=== PATIENT | female | born 1940 | race Caucasian/White ===

== ENCOUNTER → 2020-03-23 13:39 | Outpatient (BNVA) | payer MEDICARE, OTHER, SELFPAY | PROVIDERS: PCP Internal Medicine; Visit Provider Hospitalist | DX: J45.909 Unspecified asthma, uncomplicated (principal); G47.33 Obstructive sleep apnea (adult) (pediatric); R91.8 Other nonspecific abnormal finding of lung field; Z99.89 Dependence on other enabling machines and devices | CPT/HCPCS: 99214 ==

== ENCOUNTER → 2020-09-14 13:34 | Outpatient (BNVA) | payer MEDICARE, OTHER, SELFPAY | PROVIDERS: PCP Internal Medicine; Visit Provider Hospitalist | DX: R91.8 Other nonspecific abnormal finding of lung field (principal); G47.33 Obstructive sleep apnea (adult) (pediatric); J45.40 Moderate persistent asthma, uncomplicated; Z99.89 Dependence on other enabling machines and devices | CPT/HCPCS: 99212 ==

== ENCOUNTER 2020-12-14 13:07 | Outpatient (REF) | payer MEDICARE, OTHER, SELFPAY ==
--- NOTE | 2020-12-14 17:44 | PFT_ITS ---
INDICATION: Asthma. SPIROMETRY: The FEV1 to FVC of 84% with an FEV1 of 1.7 L, that is 97% predicted, and FVC of 2.03 L, which is 85% predicted. No significant response to bronchodilators noted. Maximum voluntary ventilation 81% predicted. LUNG VOLUMES: Total lung capacity 77% predicted. DIFFUSION CAPACITY: DLCO 66% predicted. Flow volume loop appears to show some restrictive pattern with narrowing of the flows. COMPARISONS: None. INTERPRETATION: No obstructive ventilatory defect. No significant response to bronchodilators noted. Normal maximum voluntary ventilation. However the patient does have a mild restrictive ventilatory defect of unclear etiology. Her last chest x-ray demonstrated no evidence of any parenchymal disease. In addition to that her diffusion capacity is mildly decreased. Clinical correlation warranted. MD BONITA Pacheco/SHAVON / [id number]
== END 2020-12-14 13:08 | disposition home or self-care (01) ==
LOC: HO.RESP 13:07
PROVIDERS: PCP Internal Medicine; Visit Provider Hospitalist
DX: J45.40 Moderate persistent asthma, uncomplicated (principal); J98.4 Other disorders of lung; G47.33 Obstructive sleep apnea (adult) (pediatric); Z79.899 Other long term (current) drug therapy
CPT/HCPCS: 94060; 94727; 94729; 99212

== ENCOUNTER 2021-08-14 11:56 | Outpatient (REF) | payer MEDICARE, OTHER, SELFPAY ==
--- NOTE | ~2021-08-14 | XR_ITS ---
EXAMINATION: XR CHEST CLINICAL INFORMATION: This is an 81-year-old female with other disorders of the lung. COMPARISON: None TECHNIQUE: 2 views of the chest were obtained. FINDINGS: There is bilateral apical pleural thickening and nodularity. There are increased lung markings in the upper lobes with adjacent hyperlucency. Particularly on the left. This could represent bronchiectasis on the left. In addition, there is increased soft tissue density in the right upper lung field of uncertain etiology. A nodular mass cannot be completely excluded. Therefore, CT scan of the chest is recommended for further evaluation. The cardiomediastinal silhouette appears within normal limits. The diaphragm is sharp and there are no effusions. There is osteopenia to the bony structures. Degenerative disc disease changes are noted throughout the thoracic spine. Multiple surgical clips are seen in the anterior abdomen. XR/XR chest 2V IMPRESSION: 1. The upper lung brice appear abnormal bilaterally but worse on the right than the left. A CT scan through the chest is recommended for further evaluation to exclude a mass.
== END 2021-08-14 11:57 | disposition home or self-care (01) ==
LOC: HO.XRAY 11:56
PROVIDERS: PCP Internal Medicine; Visit Provider Hospitalist
DX: G47.33 Obstructive sleep apnea (adult) (pediatric) (principal); J45.40 Moderate persistent asthma, uncomplicated; J98.4 Other disorders of lung; R91.8 Other nonspecific abnormal finding of lung field; Z99.89 Dependence on other enabling machines and devices
CPT/HCPCS: 71046; 99212

== ENCOUNTER → 2021-08-29 09:30 | Outpatient (BNVA) | payer MEDICARE, OTHER, SELFPAY | PROVIDERS: PCP Internal Medicine; Visit Provider Hospitalist | DX: G47.33 Obstructive sleep apnea (adult) (pediatric) (principal); J45.40 Moderate persistent asthma, uncomplicated; J98.4 Other disorders of lung; J47.9 Bronchiectasis, uncomplicated; R91.8 Other nonspecific abnormal finding of lung field; Z99.89 Dependence on other enabling machines and devices | CPT/HCPCS: 99212 ==

== ENCOUNTER → 2021-10-01 13:11 | Outpatient (BNVA) | payer MEDICARE, OTHER, SELFPAY | PROVIDERS: PCP Internal Medicine; Visit Provider Hospitalist | DX: J45.40 Moderate persistent asthma, uncomplicated (principal); J47.9 Bronchiectasis, uncomplicated; J98.4 Other disorders of lung; R91.8 Other nonspecific abnormal finding of lung field; G47.33 Obstructive sleep apnea (adult) (pediatric); Z99.89 Dependence on other enabling machines and devices | CPT/HCPCS: 99212 ==

== ENCOUNTER 2022-01-30 12:44 | Outpatient (REF) | payer MEDICARE, OTHER, SELFPAY ==
--- NOTE | 2022-01-30 14:03 | PFT_ITS ---
Forced vital capacity 93%, FEV1 95%, FEV1 over FVC ratio is 75. FEF 25-75 of 105% and MVV 97%. Post bronchodilator therapy, there is no significant change. Total lung capacity is 86% and residual volume 82%. Diffusion capacity 66%. CONCLUSION: Normal pulmonary function test. No evidence of obstructive or restrictive pulmonary disorder. Diffusion capacity is slightly decreased. This may be due to pulmonary emphysema or nonpulmonary factors. For this, clinical correlation is recommended. Compared to the results of PFT on 12/14/2020, the total lung capacity and residual volume numbers are increased to normal level. Jeanette Manuel MD MSMikey/MODL / [id number]
== END 2022-01-30 12:45 | disposition home or self-care (01) ==
LOC: HO.RESP 12:44
PROVIDERS: PCP Internal Medicine; Visit Provider Hospitalist
DX: J45.40 Moderate persistent asthma, uncomplicated (principal); J47.9 Bronchiectasis, uncomplicated
CPT/HCPCS: 94010; 94727; 94729

== ENCOUNTER → 2022-02-22 08:51 | Outpatient (BNVA) | payer MEDICARE, OTHER, SELFPAY | PROVIDERS: PCP Internal Medicine; Visit Provider Hospitalist | DX: R91.8 Other nonspecific abnormal finding of lung field (principal); J45.40 Moderate persistent asthma, uncomplicated; J98.4 Other disorders of lung; J47.9 Bronchiectasis, uncomplicated; G47.33 Obstructive sleep apnea (adult) (pediatric); Z99.89 Dependence on other enabling machines and devices | CPT/HCPCS: 99212 ==

== ENCOUNTER 2023-03-19 09:12 | Outpatient (AMB) | payer MEDICARE, OTHER, SELFPAY ==
[2023-03-19 09:18] VITALS: BP 128/60; PULSE 63; O2SAT 98; BMI 26.4
--- NOTE | 2023-03-19 09:18 | MHC.OFFVIS ---
Intake Vital Signs 03/19/23 09:18 Height 5 ft 1 in Weight 140 lb BMI 26.4 BP 128/60 Blood Pressure Location Rt brachial Position Sitting Pulse 63 Pulse Source Pulse Oximeter Pulse Oximetry (%) 98 Oxygen Delivery Method Room Air Intake Visit Reasons: COPD [employer] Required: No Allergies sulfamethoxazole [From Bactrim] Allergy (Mild, Verified 03/19/23 09:20) Rash trimethoprim [From Bactrim] Allergy (Mild, Verified 03/19/23 09:20) Rash HPI HPI Comments History of Present Illness Details The patient is an 83-year-old woman with a known history of asthma in addition to obstructive sleep apnea on CPAP. The CPAP therapy has been affective and beneficial. She does use it for more than 4 hours a night. she uses a nasal mask with good effect. She has been concerned because she has been getting bills from her [employer]. Therefore, I did call [employer] in reviewed the bills with them. They explained that she does not have any deals pending at this time. they will let the patient know as well. In the meantime her respiratory status has been stable. She has not had to use her rescue inhaler. Sometimes when she gets sick she likes to have Symbicort To use for period of time. She still has a cough. Usually intermittent [id number]. Usually nonproductive. She also had history of pulmonary nodules. At this time will request a chest x-ray 09/14/2020 the patient is here for pulmonary follow-up visit. Overall she is doing okay. She does complaint of increasing dyspnea on exertion. She states that she gained some weight during the pandemic. She typically goes for walks but lately she has felt more breathless. The for she does continue to use her respiratory therapy with the Symbicort. Although sometimes she forgets to do the 2nd do se. She has not had to use her rescue therapy although she knows she can use it when she gets short of breath due. In the meantime she continues uses CPAP. The CPAP therapy continues to be affecting beneficial. She is still struggling with the [employer] company and bills. I did reach out to the [employer]. It appears that her bills are intact in all taking care of. However, the sales training representative from [employer] will call the patient to clarify any uncertainties. The patient did not have a chest x-ray so therefore I will have her undergo an x-ray now. In the meantime she is concerned about the pulmonary nodules that had been diagnosed in the past. Therefore I will request her CT scan from [facility] to further evaluate her nodules and further management. 12/14/2020 the patient is here for pulmonary follow-up visit. Overall the patient is doing better. Her cough seems to be better. She has not been using the Symbicort at this time. She did undergo pulmonary function studies and we did review them. known obstructive process although she did have a mild restrictive ventilatory defect. Her previous chest x-rays have been okay. we did look at her CT scan that she had at [facility], although, we only got back a CT scan of the abdomen with minimal lung windows demonstrating clear lung bases. The patient continues to use her CPAP. The CPAP therapy continues to be effective in beneficial. She has a comfortable mask and she is getting supplies at this time. At this time will hold off on any additional studies and therapies. She can use her Symbicort as needed. 08/14/2021 the patient is here for a pulmonary follow-up visit. Since we last spoke she did develop a cold and then ultimately developed chest tightness and cough. She went to see her primary care doctor and was prescribed a short-acting beta agonist. She no longer had the Symbicort available. The inhaler has been helpful but she is not sure when to use it hilar use it. Therefore we spent some time in the office teaching her. We did provide her peak flow in her peak flow is 340 mL. She was then taught how to use her rescue inhaler however she could not do a without spacer. Therefore space was also provided. The patient is going to lock her numbers and she is going to return in 4 weeks or so and we can assess her airway resistance and assess to see if she needs to be on maintenance therapy. She is wondering about the diagnosis of asthma. Explained to her that this is a clinical diagnosis based on her symptoms and response to therapy. The patient is okay with that. The meantime she continues use her CPAP. The CPAP therapy continues to be affecting beneficial. She does use it for more than 4 hours. I did reach out to her [employer] in order to get access. 08/29/2021 the patient is here with her daughter and also her son is on the phone due to a policy of just 1 visit per patient. The patient had been having some worsening respiratory symptoms and was requests to have a chest x-ray. The x-ray was abnormal with some slight opacities in the upper lung zones. Therefore she was sent for CT scan of the chest which was personally by me. The the patient does have some apical scarring in nodular densities which are consistent with the findings on the x-ray. The scarring is also associated with some bronchiectatic changes. I was able to look at a CT scan from [facility] from 2016 which demonstrated the apical scarring along with bronchiectasis. But now she appears to also have pulmonary nodules measuring up to 3 mm in size in some areas of atelectasis. She has had CT scans at [facility]. I will request that her recent CT scan gets compared to the most recent CT scan at [facility]. She does have CT scans in multiple places. the patient also appears to have some increasing bronchiectatic changes at the bases. I do believe she that the patient has a chronic airway condition that is resulting in this and not a malignant process. The patient does have some nodularity to the scarring in the upper lung zones but she has had that in some time. The family is very concerned about the possibility of malignancy due to her decreasing energy decrease in appetite and fatigue. The reassuring that I do believe that the findings are more consistent with chronic airway disease and will try to get a sputum to try to assess for chronic smoldering infections and also request blood work to look for inflammatory conditions or immuno compromising conditions likely result in the bronchiectatic changes. She does not have a lot of mucus right now. I will provide her with a flutter valve in order to help clear secretions specially with bronchiectatic changes. In view of the patient's symptoms and the findings on the CT scan I will request a repeat CT scan in 6 months time to make sure that there is no interval worsening of the findings. 10/01/2021 the patient is here for a pulmonary follow-up visit. Overall the patient has been doing well. She continues to go for regular walks without significant respiratory limitations. We did request an Acapella valve. However, the patient does not feel like she needs 1. I did emphasize that walking will allow greater diaphragmatic excursion and that would also help with mucus clearance. We did review her pulmonary function studies that she had back in December 2020 demonstrating a mild restrictive ventilatory defect. Explained to her that this is very mouth finding it. It is likely the result of her apical scarring and atelectasis in the chest area. She was not able to produce any mucus to sent for any analysis in order to address the bronchiectatic changes. Likely that the bronchiectatic changes are primarily due to some traction bronchiectasis in addition to some mucus plugging. We did review her blood work which is reassuring without any evidence of any immunocompromised state that could result in a chronic smoldering infection. The patient does continue to use her CPAP. The CPAP therapy continues to be affecting beneficial. She does use it for more than 4 hours a night. At this point based on the pulmonary nodules the interstitial changes the atelectasis the bronchiectatic changes will plan to repeat the CT scan sometime in the fall and at that point will also have her undergo pulmonary function studies. 02/22/2022 the patient is here for a pulmonary follow-up visit. Overall she is doing well from a respiratory status. The patient does have a rescue inhaler but she has not needed it. She does stay active with all her activities of daily living and yd work and gardening without any limitations. Denies any mucus production. There was a question of bronchiectasis and previous CT scans although borderline. She did have a repeat CT scan to follow-up her nodules on 02/08/2022. We personally reviewed the images. She has not parenchymal scarring of the APCs bilaterally. These have not changed. Her pulmonary nodules have not changed. She does have 1 ground-glass nodular density in the right hemithorax that has not changed when compared to last year. She understands that the ground-glass nodular densities in to be monitor closely. Therefore will do another CT scan in a year's time. If at that point the nodular density has not changed will likely hold off on serial CT scans and just follow up p.r.n.. The patient also underwent pulmonary function studies demonstrating no obstructive nor restrictive ventilatory defects. She does have a mild diffusion impairment. PFTs appear to be improved. 03/19/2023 the patient is here for pulmonary follow-up visit. Overall the patient is doing well. She denies any worsening respiratory symptoms. She did have a recent CT scan of the chest demonstrating her baseline apical scarring with some traction bronchiectasis and nodular densities. The CT scan have not changed so therefore will hold off on additional CT scans at this time. She is also using her CPAP. CPAP therapy continues to be affecting beneficial. She does use a CPAP for more than 4 hours a night. We did talk about different mask. I did provide her with the N30 I small mask that she likes she is going to use. If this mask is helpful and comfortable for her she will call in order for us to send a prescription for the mask to her [employer] company. [facility] Medical History (Updated 03/19/23 @ 20:55 by Russ Manrique MD) Pulmonary scarring Pulmonary nodules Bronchiectasis New abnormality on chest x-ray Chronic restrictive lung disease Pulmonary nodules KORI on CPAP Asthma Family History (Updated 03/23/20 @ 21:30 by Russ Manrique MD) Father No problems noted. Social History (Updated 08/14/21 @ 13:06 by Maria R Luna Gale) Patient Tobacco Use Status: Former Tobacco user Tobacco use type: Cigarette Years Smoked: 10 years Review of Systems Const Reports fatigue, Denies night sweats and Reports weight loss ENT Denies change in voice, Denies lip swelling, Denies mouth pain, Reports nasal congestion, Reports nasal discharge and Denies tongue swelling Card Denies chest pain and Denies dyspnea on exertion Resp Denies chest congestion, Reports cough, Denies dyspnea on exertion and Denies wheezing GI Denies abdominal pain Musc Denies no additional complaints Neuro Denies Neuro-related abnormal movements Psych Denies no additional complaints Endo Reports fatigue Mauricio/Lymph Denies easy bleeding and Denies lymphadenopathy Aller/Immun Denies lip swelling, Denies tongue swelling and Denies wheezing Physical Exam Vital Signs: Last Vital Signs Pulse 63 03/19/23 09:18 BP 128/60 03/19/23 09:18 Pulse Ox 98 03/19/23 09:18 Oxygen Delivery Method Room Air 03/19/23 09:18 BMI result Body Mass Index 26.4 Const General: alert Eyes Pupils: Equal, round and reactive pupils present Neck Neck: Yes normal visual inspection, Yes full ROM and Yes no lymphadenopathy Chest Chest palpation & inspection: normal inspection of the chest Resp Auscultation: no crackles, no rales, no rhonchi, no wheezes and diminished lung sounds Cardio Rate: regular rate Rhythm: regular rhythm Heart sounds: S1 normal heart sound present and S2 normal heart sound present GI Palpation (GI): Soft to palpation and nontender Auscultation: normal bowel sounds Skin General skin exam: rashes and/or lesions noted Neuro Cranial nerves: Yes Equal, round and reactive pupils present Assessment & Plan Assessment & Plan (1) Pulmonary nodules: Comment: multiple solid nodules, 1 4-5mm GG nodule in the right hemithorax, stable Code(s): R91.8 - Other nonspecific abnormal finding of lung field (2) KORI on CPAP: Code(s): G47.33 - Obstructive sleep apnea (adult) (pediatric); Z99.89 - Dependence on other enabling machines and devices (3) Asthma: Code(s): J45.909 - Unspecified asthma, uncomplicated Qualifiers: Asthma complication type: uncomplicated Asthma persistence: persistent Asthma severity: moderate Qualified Code(s): J45.40 - Moderate persistent asthma, uncomplicated (4) Chronic restrictive lung disease: Comment: resolved Code(s): J98.4 - Other disorders of lung (5) Bronchiectasis: Comment: boderline Code(s): J47.9 - Bronchiectasis, uncomplicated Qualifiers: Bronchiectasis type: uncomplicated Qualified Code(s): J47.9 - Bronchiectasis, uncomplicated Plan Continue CPAP therapy. Will trial N30i small Continue short-acting beta agonist as needed with spacer CT chest unchanged, no need for additional scans F/U in 1 year Coding Level of Care Code Est Pt Level 4 (13249) Diagnoses Pulmonary nodules R91.8 KORI on CPAP G47.33; Z99.89 Moderate persistent asthma without complication J45.40 Asthma complication type: uncomplicated Asthma persistence: persistent Asthma severity: moderate Chronic restrictive lung disease J98.4 Bronchiectasis without complication J47.9 Bronchiectasis type: uncomplicated Time Spent (min) 17
== END 2023-03-19 09:46 | disposition home or self-care (01) ==
PROVIDERS: PCP Internal Medicine; Visit Provider Hospitalist
DX: R91.8 Other nonspecific abnormal finding of lung field (principal); G47.33 Obstructive sleep apnea (adult) (pediatric); Z99.89 Dependence on other enabling machines and devices; J45.40 Moderate persistent asthma, uncomplicated; J98.4 Other disorders of lung; J47.9 Bronchiectasis, uncomplicated
CPT/HCPCS: 99214

== ENCOUNTER → 2023-03-19 09:12 | Outpatient (BNVA) | payer MEDICARE, OTHER, SELFPAY | PROVIDERS: PCP Internal Medicine; Visit Provider Hospitalist | DX: J45.40 Moderate persistent asthma, uncomplicated (principal); J47.9 Bronchiectasis, uncomplicated; J98.4 Other disorders of lung; R91.8 Other nonspecific abnormal finding of lung field; G47.33 Obstructive sleep apnea (adult) (pediatric); Z99.89 Dependence on other enabling machines and devices | CPT/HCPCS: 99212 ==

== ENCOUNTER 2024-05-13 14:08 | Outpatient (AMB) | payer MEDICARE, OTHER, SELFPAY ==
[2024-05-13 14:13] VITALS: BP 118/62; PULSE 70; O2SAT 97; BMI 26.4
--- NOTE | 2024-05-13 14:13 | A.OFFVIS_ITS ---
Vital Signs 05/13/24 14:13 Height 5 ft 3 in Weight 148 lb 12.992 oz BMI 26.4 BP 118/62 Blood Pressure Location Rt brachial Position Sitting Pulse 70 Pulse Source Pulse Oximeter Pulse Oximetry (%) 97 Oxygen Delivery Method Room Air Intake Visit Reasons: COPD Allergies sulfamethoxazole [From Bactrim] Allergy (Mild, Verified 05/13/24 14:16) Rash trimethoprim [From Bactrim] Allergy (Mild, Verified 05/13/24 14:16) Rash HPI Comments Details: The patient is an 84-year-old woman with a known history of asthma in addition to obstructive sleep apnea on CPAP. The CPAP therapy has been affective and beneficial. She does use it for more than 4 hours a night. she uses a nasal mask with good effect. She has been concerned because she has been getting bills from her [employer]. Therefore, I did call [employer] in reviewed the bills with them. They explained that she does not have any deals pending at this time. they will let the patient know as well. In the meantime her respiratory status has been stable. She has not had to use her rescue inhaler. Sometimes when she gets sick she likes to have Symbicort To use for period of time. She still has a cough. Usually intermittent [id number]. Usually nonproductive. She also had history of pulmonary nodules. At this time will request a chest x-ray 09/14/2020 the patient is here for pulmonary follow-up visit. Overall she is doing okay. She does complaint of increasing dyspnea on exertion. She states that she gained some weight during the pandemic. She typically goes for walks but lately she has felt more breathless. The for she does continue to use her respiratory therapy with the Symbicort. Although sometimes she forgets to do the 2nd do se. She has not had to use her rescue therapy although she knows she can use it when she gets short of breath due. In the meantime she continues uses CPAP. The CPAP therapy continues to be affecting beneficial. She is still struggling with the [employer] company and bills. I did reach out to the [employer]. It appears that her bills are intact in all taking care of. However, the cash applications representative from [employer] will call the patient to clarify any uncertainties. The patient did not have a chest x-ray so therefore I will have her undergo an x-ray now. In the meantime she is concerned about the pulmonary nodules that had been diagnosed in the past. Therefore I will request her CT scan from [facility] to further evaluate her nodules and further management. 12/14/2020 the patient is here for pulmonary follow-up visit. Overall the patient is doing better. Her cough seems to be better. She has not been using the Symbicort at this time. She did undergo pulmonary function studies and we did review them. known obstructive process although she did have a mild restrictive ventilatory defect. Her previous chest x-rays have been okay. we did look at her CT scan that she had at [facility], although, we only got back a CT scan of the abdomen with minimal lung windows demonstrating clear lung bases. The patient continues to use her CPAP. The CPAP therapy continues to be effective in beneficial. She has a comfortable mask and she is getting supplies at this time. At this time will hold off on any additional studies and therapies. She can use her Symbicort as needed. 08/14/2021 the patient is here for a pulmonary follow-up visit. Since we last spoke she did develop a cold and then ultimately developed chest tightness and cough. She went to see her primary care doctor and was prescribed a short- acting beta agonist. She no longer had the Symbicort available. The inhaler has been helpful but she is not sure when to use it hilar use it. Therefore we spent some time in the office teaching her. We did provide her peak flow in her peak flow is 340 mL. She was then taught how to use her rescue inhaler however she could not do a without spacer. Therefore space [facility] also [facility] and she is going to return in 4 weeks or so and we can assess her airway resistance and assess to see if she needs to be on maintenance therapy. She is wondering about the diagnosis of asthma. Explained to her that this is a clinical diagnosis based on her symptoms and response to therapy. The patient is okay with that. The meantime she continues use her CPA P. The CPAP therapy continues to be affecting beneficial. She does use it for more than 4 hours. I did reach out to her [employer] company, [employer] in order to get access. 08/29/2021 the patient is here with her daughter and also her son is on the phone due to a policy of just 1 visit per patient. The patient had been having some worsening respiratory symptoms and was requests to have a chest x-ray. The x- ray was abnormal with some slight opacities in the upper lung zones. Therefore she was sent for CT scan of the chest which was personally by me. The the patient does have some apical scarring in nodular densities which are consistent with the findings on the x-ray. The scarring is also associated with some bronchiectatic changes. I was able to look at a CT scan from [facility] from 2016 which demonstrated the apical scarring along with bronchiectasis. But now she appears to also have pulmonary nodules measuring up to 3 mm in size in some areas of atelectasis. She has had CT scans at [facility]. I will request that her recent CT scan gets compared to the most recent CT scan at [facility]. She does have CT scans in multiple places. the patient also appears to have some increasing bronchiectatic changes at the bases. I do believe she that the patient has a chronic airway condition that is resulting in this and not a malignant process. The patient does have some nodularity to the scarring in the upper lung zones but she has had that in some time. The family is very concerned about the possibility of malignancy due to her decreasing energy decrease in appetite and fatigue. The reassuring that I do believe that the findings are more consistent with chronic airway disease and will try to get a sputum to try to assess for chronic smoldering infections and also request blood work to look for inflammatory conditions or immuno compromising conditions likely result in the bronchiectatic changes. She does not have a lot of mucus right now. I will provide her with a flutter valve in order to help clear secretions specially with bronchiectatic changes. In view of the patient's symptoms and the findings on the CT scan I will request a repeat CT scan in 6 months time to make sure that there is no interval worsening of the findings. 10/01/2021 the patient is here for a pulmonary follow-up visit. Overall the patient has been doing well. She continues to go for regular walks without significant respiratory limitations. We did request an Acapella valve. However, the patient does not feel like she needs 1. I did emphasize that walking will allow greater diaphragmatic excursion and that would also help with mucus clearance. We did review her pulmonary function studies that she had back in December 2020 demonstrating a mild restrictive ventilatory defect. Explained to her that this is very mouth finding it. It is likely the result of her apical scarring and atelectasis in the chest area. She was not able to produce any mucus to sent for any analysis in order to address the bronchiectatic changes. Likely that the bronchiectatic changes are primarily due to some traction bronchiectasis in addition to some mucus plugging. We did review her blood work which is reassuring without any evidence of any immunocompromised state that could result in a chronic smoldering infection. The patient does continue to use her CPAP. The CPAP therapy continues to be affecting beneficial. She does use it for more than 4 hours a night. At this point based on the pulmonary nodules the interstitial changes the atelectasis the bronchiectatic changes will plan to repeat the CT scan sometime in the fall and at that point will also have her undergo pulmonary function studies. 02/22/2022 the patient is here for a pulmonary follow-up visit. Overall she is doing well from a respiratory status. The patient does have a rescue inhaler but she has not needed it. She does stay active with all her activities of daily living and yd work and gardening without any limitations. Denies any mucus production. There was a question of bronchiectasis and previous CT scans although borderline. She did have a repeat CT scan to follow-up her nodules on 02/08/2022. We personally reviewed the images. She has not parenchymal scarring of the APCs bilaterally. These have not changed. Her pulmonary nodules have not changed. She does have 1 ground-glass nodular density in the right hemithorax that has not changed when compared to last year. She understands that the ground-glass nodular densities in to be monitor closely. Therefore will do another CT scan in a year's time. If at that point the nodular density has not changed will likely hold off on serial CT scans and just follow up p.r.n.. The patient also underwent pulmonary function studies demonstrating no obstructive nor restrictive ventilatory defects. She does have a mild diffusion impairment. PFTs appear to be improved. 03/19/2023 the patient is here for pulmonary follow-up visit. Overall the patient is doing well. She denies any worsening respiratory symptoms. She did have a recent CT scan of the chest demonstrating her baseline apical scarring with some traction bronchiectasis and nodular densities. The CT scan have not changed so therefore will hold off on additional CT scans at this time. She is also using her CPAP. CPAP therapy continues to be affecting beneficial. She does use a CPAP for more than 4 hours a night. We did talk about different mask. I did provide her with the N30 I small mask that she likes she is going to use. If this mask is helpful and comfortable for her she will call in order for us to send a prescription for the mask to her [employer] company. 05/13/2024 the patient is here for a pulmonary follow-up visit. The patient katiana agarwal has been doing okay on until recently. For the last several days she has been complaining of a croupy cough. Also some chest and throat irritation. Prior to that she has been doing okay. She does use her CPAP every night. CPAP therapy has been affecting beneficial. She does use for more than 4 hours a night. Her average pressure is around 11. She currently has a nasal mask. She will benefit from a fullface mask but she is not sure at this time if she could tolerate it. In addition to that the patient does have a rescue inhaler albuterol which she uses as needed. She does not need a refill at this time. The patient is scheduled to undergo a total hip replacement on the left. Therefore, will go ahead and give her a course of azithromycin just for 5 days just to kind of clear any respiratory process that may be starting. But, from pulmonary standpoint patient may be able to proceed with surgery after the antibiotics and as long she is doing okay from respiratory status. [facility] Medical History (Updated 05/13/24 @ 21:22 by Russ Manrique MD) Pulmonary scarring Pulmonary nodules Bronchiectasis New abnormality on chest x-ray Chronic restrictive lung disease Pulmonary nodules KORI on CPAP Asthma Family History (Updated 03/23/20 @ 21:30 by Russ Manrique MD) Father No problems noted. Social History Patient Tobacco Use Status: Former Tobacco user Tobacco use type: Cigarette Years Smoked: 10 years Review of Systems Const Reports fatigue, Denies night sweats and Reports weight loss ENT Denies change in voice, Denies lip swelling, Denies mouth pain, Reports nasal congestion, Reports nasal discharge and Denies tongue swelling Card Denies chest pain and Denies dyspnea on exertion Resp Denies chest congestion, Reports cough, Denies dyspnea on exertion and Denies wheezing GI Denies abdominal pain Musc Reports as per HPI, Reports arthralgias and Reports limited range of motion Neuro Denies Neuro-related abnormal movements Psych Denies no additional complaints Endo Reports fatigue Mauricio/Lymph Denies easy bleeding and Denies lymphadenopathy Aller/Immun Denies lip swelling, Denies tongue swelling and Denies wheezing Physical Exam Vital Signs: Last Vital Signs Pulse 70 05/13/24 14:13 BP 118/62 05/13/24 14:13 Pulse Ox 97 05/13/24 14:13 Oxygen Delivery Method Room Air 05/13/24 14:13 BMI result Body Mass Index 26.4 Const General: alert Eyes Pupils: Equal, round and reactive pupils present Neck Neck: Yes normal visual inspection, Yes full ROM and Yes no lymphadenopathy Chest Chest palpation & inspection: normal inspection of the chest Resp Effort & Inspection: Actively coughing Quality: other (croup, mild) Auscultation: no crackles, no rales, no rhonchi, no wheezes and diminished lung sounds Cardio Rate: regular rate Rhythm: regular rhythm Heart sounds: S1 normal heart sound present and S2 normal heart sound present GI Palpation (GI): Soft to palpation and nontender Auscultation: normal bowel sounds Skin General skin exam: no rashes or lesions noted Neuro Cranial nerves: Yes Equal, round and reactive pupils present Extrem General: Yes no clubbing, cyanosis or edema Assessment & Plan Assessment & Plan (1) Pulmonary nodules: Comment: multiple solid nodules, 1 4-5mm GG nodule in the right hemithorax, stable Code(s): R91.8 - Other nonspecific abnormal finding of lung field Category: Medical (2) KORI on CPAP: Code(s): G47.33 - Obstructive sleep apnea (adult) (pediatric); Z99.89 - Dependence on other enabling machines and devices Category: Medical (3) Asthma: Code(s): J45.909 - Unspecified asthma, uncomplicated Category: Medical Qualifiers: Asthma complication type: uncomplicated Asthma persistence: persistent Asthma severity: moderate Qualified Code(s): J45.40 - Moderate persistent asthma, uncomplicated (4) Chronic restrictive lung disease: Comment: resolved Code(s): J98.4 - Other disorders of lung Category: Medical (5) [facility]: [facility] Code(s): J47.9 - Bronchiectasis, uncomplicated Category: Medical Qualifiers: Bronchiectasis type: uncomplicated Qualified Code(s): J47.9 - Bronchiectasis, uncomplicated (6) Cough: Code(s): R05.9 - Cough, unspecified Category: Medical Qualifiers: Cough type: acute Qualified Code(s): R05.1 - Acute cough Plan start Zpack Continue CPAP therapy. Will trial N30i small, needs supplies. Consider replacement APAP next yr (2018) Continue short-acting beta agonist as needed with spacer CT chest unchanged, no need for additional scans ok to proceed with orthopedic surgery after completing the abx F/U in 1 year Medications: New azithromycin 500 mg PO DAILY 5 tabs 0RF 5 days Coding Level of Care Code Est Pt Level 4 (12596) Diagnoses Pulmonary nodules R91.8 KORI on CPAP G47.33; Z99.89 Moderate persistent asthma without complication J45.40 Asthma complication type: uncomplicated Asthma persistence: persistent Asthma severity: moderate Chronic restrictive lung disease J98.4 Bronchiectasis without complication J47.9 Bronchiectasis type: uncomplicated Acute cough R05.1 Cough type: acute
--- OUTSIDE RECORDS SUMMARY | 2024-05-19 03:03 | XMS_ITS | Patient Health Record ---
[facility] Address [address] [place] [id number] Care Team Providers Care [employer] Name Role Phone Frances Zapata MD Primary Care Provider Unavail able Kaya Clifford Unavailable [phone] Allergies Allergen (clinical drug ingredient) Drug/Non Drug Allergy documented on EMR Reaction Allergy Type Onset Date Status epinephrine Epinephrine Unknown Drug Allergy Act justin Substance with sulfonamide structure and antibacterial mechanism of action (substance) Sulfa Antibiotics Unknown Drug Allergy Active Reason For Referral No Information Medications Medication SIG (Take, Route, Frequency, Duration) Notes Start Date End Date Status Calcium Not-Taking Turmeric Active D-Mannose Active amLODIPine Besylate 5 MG 1 tablet Orally Once a day Active Omeprazole Active Sertraline HCl 25 MG 1 tablet Orally Onc e a day Not-Taking Immunizations Vaccine Route Administration Date Status Comme nts COVID-19 Pfizer BioNTech Vaccine Unknown 02/27/2022 Administered 3rd 09/14/2021 2nd 03/13/2021 1st Social History Tobacco Use: Social History Observation Description Date Details (start date - stop date) Former Smoker NA - NA Tobacco Use/Smoking Question Answer Notes Are you a: former smoker Additional Findings: Tobacco Non-User Current no n-smoker Alcohol Screen Question Answer Notes Did you have a drink containing alcohol in the p ast year? No Points 0 Interpretation Negative Tobacco use other than smoking: Question Answer Notes Are you an other tobacco user? No Problems Problem Type SNOMED Code ICD Code Onset Dates Problem Status W/U Status Risk Notes Problem Acquired hallux valgus (94819773) Hallux valgus (acquired), left foot (M20.12) Active confirmed Problem Localized, primary osteoarthritis of the ankle and/or foot (817329944) Primary osteoarthriti s, left ankle and foot (M19.072) Active confirmed Problem Acquired hallux valgus (73701847) Hallux valgus (acquired), right foot (M20.11) Active confirmed Problem Non-pressure chronic ulcer of other part of left foot limited to breakdown of skin (L97.521) Active confirmed Problem Acquired hammer toe of right foot (9293503741055106) Other hammer toe(s) (acquired), right foot (M20.41) Active confirmed Problem Acquired hammer toe of right foot (0270996934798467) Other hammer toe(s) (acquired), right foot (M20.41) Active confirmed Problem Acquired hammer toe of left foot (1282320387162258) Other hammer toe(s) (acquired), left foot (M20.42) Active confirmed Problem 92424363 Unsteady gait (R26.81) Active confirmed Problem 253784486 Hallux rigidus of left foot (M20.22) Active confirmed Problem Localized, primary osteoarthritis of the ankle and/or foot (606267274) Arthritis of joint of lesser toe, right (M19.071) Active confirmed Vital Signs Height 5 ft 3 in in 11/28/2023 Weight 142 lbs 11/28/2023 BMI 25.15 kg/m2 11/28/2023 Encounters Encounter Location Date Provider Diagnosis [address] [address] 08/29/2023 Kaya Black Dystrophic nail L60.3 ; Other hammer toe(s) (acquired), right foot M20.41 ; Pain in left toe(s) M79.675 and Pain in right toe(s) M79.[address] [address] 11/28/2023 Kaya Black Dystrophic nail L60.3 ; Other hammer toe(s) (acquired), right foot M20.41 ; Pain in left toe(s) M79.675 and Pain in right toe(s) M79.674 [facility] [address] [place] [address] 05/18/2024 Kaya Black Assessments Encounter Date Diagnosis (ICD Code) Assessment Notes Treatment Notes Treatment Clinical Notes Section Notes 08/29/2023 Other hammer toe(s) (acquired), right foot (ICD-10 - M20.41) 08/29/2023 Dystrophic nail (ICD-10 - L60.3) 11/28/2023 Dystrophic nail (ICD-10 - L60.3) 08/29/2023 Pain in left toe(s) (ICD-10 - M79.675) 11/28/2023 Other hammer toe(s) (acquired), right foot (ICD-10 - M20.41) 11/28/2023 Pain in left toe(s) (ICD-10 - M79.675) 08/29/2023 Pain in right toe(s) (ICD-10 - M79.674) 11/28/2023 Pain in right toe(s) (ICD-10 - M79.674) Plan Of Treatment No Information Insurance Providers Payer Name Payer Address Payer Phone Subscriber Number Group Number Insured Name Patient Relationship to Insured Coverage Start Date Coverage End Date Medicare National [employer] [address] [place] [address] [id number] Precious Ashby Self - patient is the insured [facility] [address] [place] [address] [id number] Precious Ashby Self - patient is the insured Medical (General) History Medical History History ICD Code Arthritis asthma High blood pressure Measles Mumps Chicken pox Surgical History Surgery Date(Month/Year) hysterectomy bone removal left hand bowel resection appendectomy
--- OUTSIDE RECORDS SUMMARY | 2024-05-19 03:03 | XMS_ITS ---
Author Organization [facility] Address [address] [place] [phone] Care Team Providers Care Electronic Test Technician Name Role Phone Jodi LU, Frances Primary Care Provider Unavail able Black, Kaya Unavailable [phone] REASON FOR VISIT cx 05/21/24 Encounters Encounter Location Date Provider Diagnosis [facility] [address] [place] [address] 05/18/2024 Kaya Black Plan Of Treatment No Information Progress Notes * Gerri CHINOHenriettaOB:1939 (84 yo F)Acc No.[id number]:05/18/2024 Patient:?Precious CHINO :1940???Age:84 Y???Sex:Female Address:[address] [place] [id number] * true * Date:? Generated for Eliasi ariel/Priscila/eTransmitting on:?05/19/2024 03:02 AM EST
--- OUTSIDE RECORDS SUMMARY | 2024-05-19 03:03 | XMS_ITS ---
Author Organization [facility] Jagruti velazquez Hamer Address [address] [place] [address] Care Team Providers Care Media Intern Name Role Phone Jodi LU, Frances Primary Care Provider Unavail able Black, Kaya Unavailable [phone] Allergies Allergen (clinical drug ingredient) Drug/Non Drug Allergy documented on EMR Reaction Allergy Type Onset Date Status epinephrine Epinephrine Unknown Drug Allergy Act justin Substance with sulfonamide structure and antibacterial mechanism of action (substance) Sulfa Antibiotics Unknown Drug Allergy Active REASON FOR VISIT Painful Nail(s), pt states last pcp visit was 08/2023, Toe Pain Medications Medication SIG (Take, Route, Frequency, Duration) Notes Start Date End Date Status Calcium Not-Taking Turmeric Active D-Mannose Active Omeprazole Active Sertraline HCl 25 MG 1 tablet Orally Onc e a day Not-Taking amLODIPine Besylate 5 MG 1 tablet Orally Once a day Active Social History Tobacco Use: Social History Observation [...] Are you an other tobacco user? No Vital Signs Height 5 ft 3 in in 11/28/2023 Weight 142 lbs 11/28/2023 BMI 25.15 kg/m2 11/28/2023 Encounters Encounter Location Date [facility] [address] 11/28/2023 Kaya Black Dystrophic nail L60. 3 ; Other hammer toe(s) (acquired), right foot M20.41 ; Pain in left toe(s) M79.675 and Pain in right toe(s) M79.674 Assessments Encounter Date Diagnosis (ICD Code) Assessment Notes Treatment Notes Treatment Clinical Notes Section Notes 11/28/2023 Dystrophic nail (ICD-10 - L60.3) 11/28/2023 Other hammer toe(s) (acquired), right foot (ICD-10 - M20.41) 11/28/2023 Pain in left toe(s) (ICD-10 - M79.675) 11/28/2023 Pain in right toe(s) (ICD-10 - M79.674) Plan Of Treatment Next Appt Details Follow Up: prn, Reason: Progress Notes * ELINGerri VillafanaHenriettaOB:1939 (83 yo F)Acc No.[id number]:11/28/2023 Progress Note Patient:?MerissatatianaPrecious villafana Provider:?Kaya Clifford DPM :1940???Age:83 Y???Sex:Female D ate:11/28/2023 Address:[address] [place], [place] [id number] Pcp:Frances Zapata MD Subjective: * Chief Complaints: * ???Painful Nail(s)Pt states last pcp visit was 08/2023Toe Pain * HPI: ???Painful Nails:?Treatments:?Topical Antifungal.?Toe pain:?Nature:?tenderness.?Location:?Right foot , 5th toe.?Duration:?several weeks.?Course:?worse.?Aggrevated by:?any pressure, shoes.?Treatments:?rest/alter normal daily activity, change in shoes.? * ROS:?General/Constitutional:?Nausea?denies.?Vomiting?denies.?Hunger Thirst?denies.?Loss appetite?denies, denies.?Chills?denies, denies.?Fatigue?denies.?Fever?denies, denies.?Night Sweats?denies.?Unexplained weight loss?denies.?Unexplained weight gain?denies.?Ophthalmologic:?Blurred vision?denies.?Red eye?denies.?HEENTM:?Dentures?denies.?Dizziness?denies.?Glasses/contacts?denies.?Retinopathy?de nies.?Blurred/double vision?denies.?TMJ?denies.?Discharge/drainage?denies.?Implants?denies.?Sore throat?denies.?Dental implants?denies.?Hard of hearing ?denies.?Difficulty chewing/swallowing/speaking?denies.?Nose bleeds?denies.?Sore mouth?denies, denies.?Swollen glands?denies.?Respiratory:?On Oxygen?denies.?Pneumonia/pleurisy?denies.?Bronchitis?denies.?Emphysema?denies.?C oughing?denies, denies.?Cough blood?denies.?Shortness of breath?denies, denies.?Wheezing?denies, denies.?Cardiovascular:?Pacemaker?denies.?MVP?denies.?WPW?denies.?CHF?denies.?Heart attack?denies.?Septal defect?denies.?Rapid beat?denies.?Chest pain ?denies, denies.?Atrial Fib.?denies, denies.?Murmur/Palpitations?denies.?Gastrointestinal:?Hemorrhoids?denies.?Stomach/Abdominal pain?denies, denies.?Dark blood stool?denies.?Irritable bowel ?denies.?Constipation?denies.?Diarrhea?denies, denies.?Vomiting?denies.?Hematology:?Swelling?denies.?Clots?denies.?Varicose Veins?denies.?Bruising?denies.?Bleeding problem?denies.?Genitourinary:?Blood urine?denies, denies.?Frequent/Painfu/urination/bladder control?denies, denies.?Kidney stones?denies.?Infection (UTI)?denies.?Nephropathy?denies.?sex trans dis (STD)?denies.?Prostate?denies.?Musculoskeletal:?Hammertoes?denies.?Bunions?denies.?Back Pain?denies.?Muscle Cramps/ Resting?denies.?Muscle cramps / walking?denies.?Generalized aches and pains?denies.?Painful joints?denies.?Swollen joints?denies.?Weakness?denies.?Podiatric:?Comments?See HPI for comments.?Integ.:?Chiu?denies.?Scars?denies.?Corns/calluses?denies.?Ingrown nails?denies.?Painful nails?denies.?Open Sores?denies.?Itching?denies.?Rashes?denies, denies.?Neurologic:?Difficulty sleeping?denies.?Brain disorder?denies.?Numbness?admits.?Balance trouble?admits.?Confusion?denies, denies.?Fainting/blackouts?denies.?Headache?denies.?Tingling?denies.?Tremors?den ies.? * Medical History:? * Surgical History:?hysterecto my bone removal left hand bowel resection appendectomy * Hospitalization/Major Diagno stic Procedure:?No Hospitalization History. * Family History:?Mother: dece ased.?Father: .? * Social History:?Tobacco Use:?Tobacco Use/Smoking?Are you a:?former smoker ?Additional Findings: Tobacco Non-User?Current non-smoker ?Tobacco use other than smoking?Are you an other tobacco user??No ???Drugs/Alcohol:?Drugs?Have you used drugs other than those for medical reasons in the past 12 months??No ?Alcohol Screen?Did you have a drink containing alcohol in the past year??No ?Points?0 ?Interpretation?Negative ???Miscellaneous:?Caffeine: yes, frequency:, 1-2 cups per day. ?Children: yes. ?Exercise: yes, walking, exercise/. ?Marital status: . ?Occupation: Retired. * Medications:?TakingD-Mannose Turmeric amLODIPine Besylate 5 MG Tablet 1 tablet Orally Once a dayOmeprazole Taking D-Mannose Taking Turmeric Taking amLODIPine Besylate 5 MG Tablet 1 tablet Orally Once a dayTaking Omeprazole Not-Taking/PRNCalcium Sertraline HCl 25 MG Tablet 1 tablet Orally Once a dayMedication List reviewed and reconciled with the patientNot-Taking/PRN Calcium Not-Taking/PRN Sertraline HCl 25 MG Tablet 1 tablet Orally Once a dayMedication List reviewed and reconciled with the patient * Allergies:?Sulfa Antibiotics Epinephrineyes[Allergies Verified] Objective: * Vitals:?Ht: 5 ft 3 in, Wt: 1 42, BMI:25.15, Shoe size: 8. * Examination: ???General Examination: ?GENERAL APPEARANCE:?alert, well hydrated, in no distress , good attention to hygiene.?ORIENTED:?person,place, and time.?Neurological: ?SENSORY:?Neurological exam reveals intact sensorium, pain sensation normal, vibration sensation intact, pinprick sensation is normal in the lower extremities, Pt denies, anesthesia, burning, paresthesia, tingling, B/L.?TINEL'S COMPRESSION:?negative tarsal tunnel, greg pedis, and medial calcaneal nerves b/l.?DEEP TENDON REFLEXES:?Achilles, /, B/L.?BABINSKI REFLEX:?absent.?Vascular: ?DP PULSES:? 06/12, B/L.?PT PULSES:? 06/12, B/L.?CAPILLARY FILL TIME:?3 secs. per digit, b/l.?SKIN TEMPERTURE GRADIENT OF THE LOWER EXTERMITIES:?warm to cool, proximal to distal.?HAIR GROWTH/TEXTURE/ELASTICITY/TURGOR:?absent.?EDEMA:?no edema.?Dermatologic: ?SKIN FINDINGS:?Skin exam reveals normal texture, elasticity, and tugor. There are no masses, no excrescences. The interspaces are clear..?Orthopedic: ?MUSCLE STRENGTH:?5/5 all groups in a symmetrical fashion , B/L.?GAIT ABNORMALITY:?pronated, abducted, b/l unstable.?FOOT MORPHOLOGY:? normal B/L.?BUNION:?Medially prominent 1st MPJ , RIGHT.?DIGITAL DEFORMITIES:?Digital contracture, PIPJ, 2-5 B/L, incompl-reducable with WB, or to push-up test, no over, nor underlapping , , Reveals cont. pain/swelling/redness/enlargement of PIPJ , T9.?FOOTWEAR:?shoe gear properties exacerbate patients foot/toe deformity- ?.?Nails: ?NAILS are:? Elongated, overgrown, dystrophic TA.? Assessment: * Assessment: 1.?Dystrophic nail - L60.3?2 .?Other hammer toe(s) (acquired), right foot - M20.41 (Primary)?3.?Pain in left toe(s) - M79.675?4.?Pain in right toe(s) - M79.674? Plan: * Treatment: * Procedure Codes:? * Preventive Medicine:? ??Counseling:?Discussion:?-13: Office or other outpatient visit for the evaluation and management of an established patient, which required a medically appropriate history and/or examination and LOW level of DECISION MAKING for: 1 STABLE ACUTE UNCOMPLICATED PROBLEM, 2 OR MORE MINOR PROBLEMS, OR 1 STABLE CHRONIC PROBLEM, THAT POSE(S) A LOW RISK FOR MORBIDITY/MORTALITY. The visit on the day of the encounter encompassed interpreting the data and educating the patient as to the nature of their condition, treatment options available according to their individual PMH, meds, allergies, and overall health/living conditions, as well as any potential risks or complications that may occur from a failure to adhere to, and participate in, the recommended course of therapy. The discussion included a complete verbal, and/or written explanation of the examination results, any x-rays taken, the proposed diagnosis, and outline of the treatment plan. A schedule for future care needs was also explained. The patient verbalized an understanding of the instructions at this time and agreed to be an active participant in their treatment. If the patient should think of any questions or concerns after the visit, I have encouraged the patient to call the office.?Shoe Gear Counseling:?The patient and I rAGAIN eviewed the types of shoes they should be wearing. My recommendation included obtaining a well-fitted shoe with a good supportive, non-foldable nor twistable sole, plenty of toe/room for the forefoot, and proper arch support. Based on todays examination, I recommended the patient look for new shoes, by having their feet professionally measured. We discussed that generally the best time of the day for a shoe fitting is the afternoon. Different shoes types and brands to best match the patients occupation and vocation were discussed. Specific brand selection will be up to the patient, their individual foot condition/deformities, and fit. The patient and I reviewed the standard new shoe break in period by wearing them for a few hours a day while checking for redness or sores as wear time is increased. The patient verbally confirmed to understanding the information discussed.,Pt is fitted today with gel toe sleeve.? * Follow Up:?prn * Images: * Sign off status: Completed true * Provider:?Kaya Clifford DPM Date:?2023 Generated for Nora george/Priscila/Gamaitting on:?05/19/2024 03:02 AM EST History and Physical Notes * HPI (History of Present Illness) Category Sub-Category Detail Notes Category Not es Toe pain Nature: tenderness Location: Right foot , 5th toe Duration: several weeks Course: worse Aggravated by: any pressure, shoes Treatments: rest/alter normal da jeanne activity, change in shoes Painful Nails Treatments: Topical Antifungal Examination Category Sub-Category Detail Notes Category Not es Neurological SENSORY: Neurological exa m reveals intact sensorium, pain sensation normal, vibration sensation intact, pinprick sensation is normal in the lower extremities, Pt denies, anesthesia, burning, paresthesia, tingling, B/L BABINSKI REFLEX: absent TINEL'S COMPRESSION: negative tarsal castillo juanita, greg pedis, and medial calcaneal nerves b/l DEEP TENDON REFLEXES: Achilles, 2/4, B/L Dermatologic SKIN FINDINGS: Skin exam reveal s normal texture, elasticity, and tugor. There are no masses, no excrescences. The interspaces are clear. Orthopedic GAIT ABNORMALITY: pronated, abducted, b/l unstable FOOT MORPHOLOGY: normal B/L BUNION: Medially prominent 1 st MPJ , RIGHT FOOTWEAR: shoe gear properties exacerbate patients foot/toe deformity- DIGITAL DEFORMITIES: Digital contracture , PIPJ, 2-5 B/L, incompl-reducable with WB, or to push-up test, no over, nor underlapping , , Reveals cont. pain/swelling/redness/enlargement of PIPJ , T9 MUSCLE STRENGTH: 5/5 all groups in a symmetrical fashion , B/L General Examination GENERAL APPEARANCE: alert, w ell hydrated, in no distress , good attention to hygiene ORIENTED: person,place, and ti me Vascular DP PULSES(B): 1/4, B/L PT PULSES(B): 1/4, B/L CAPILLARY FILL TIME: 3 secs. per digit, b/l TEMPERTURE GRADIENT(C): warm to cool, pr oximal to distal TROPHIC CONDITION-TEXTURE/EL ASTICITY/TURGOR/HAIR GROWTH(B): absent EDEMA(C): no edema Nails NAILS are: Elongated, overgrown, dystro phic TA
--- OUTSIDE RECORDS SUMMARY | 2024-05-19 03:03 | XMS_ITS ---
Author Name [facility] Organization Unknown Results Test Name/Text Value Interpretation Date Range Source TPE INTERPRETATION NEW Normal [facility] IMMUNOFIXATION Quantitatively IgG, IgA, and IgM are within the appropriate reference intervals. No abnormalities are noted on this immunofixation electrophoresis. Normal [facility] SIGNED OUT BY: Sarah Moe, PhD Normal [facility] ALPHA 2 % 10.3% Normal 8.6 - 13.1 [facility] % BETA 10.1% Normal 8.9 - 14.9 [facility] ALPHA 1 % 2% Normal 1.3 - 3.5 [facility] ALPHA 2 0.7g/dL Normal 0.6 - 0.9 [facility] GAMMA % 11.2% Normal 7.3 - 17 [facility] IMMUNOGLOBULIN M 152mg/dL Normal 22 - 293 [facility] IMMUNOGLOBULIN G 1091mg/dL Normal 624 - 1766 [facility] IMMUNOGLOBULIN A 216mg/dL Normal 82 - 460 [facility] ALBUMIN INDEX 4.5g/dL Normal 3.8 - 5.3 [facility] PROTEIN TOTAL 6.8g/dL Normal 6.2 - 8.1 [facility] BETA 0.7g/dL Normal [id number] 0.6 - 1.1 [facility] ALBUMIN % 66.4% Normal 57.1 - 71.3 [facility] ALPHA 1 0.1g/dL Normal [id number] 0.1 - 0.2 [facility] GAMMA 0.8g/dL Normal [id number] 0.5 - 1.2 [facility] FOLATE 12.7ng/mL Normal 7 - 31.4 [facility] VITAMIN B12 150pg/mL Normal [facility] THYROID STIM HORMONE 3.11uIU/mL Normal 0.35 - 4.94 [facility] PROTEIN TOTAL 6.8g/dL Normal 6.2 - 8.1 [facility] SEDIMENTATION RATE, ERYTHROCYTE 37mm Above high normal 0 - 20 [facility] IMMUNOGLOBULIN M 152mg/dL Normal 22 - 293 [facility] IMMUNOGLOBULIN A 216mg/dL Normal 82 - 460 [facility] IMMUNOGLOBULIN G 1091mg/dL Normal 624 - 1766 [facility] RAMAN TITER 1 1:160 Abnormal - [facility] RAMAN PATTERN Homogeneous Normal [facility] ANTI-NUCLEAR ANTIBODY (RAMAN) Positive Abnormal - [facility] History of Medication Use Medication Directions Dispensed Refills Start Date End Date Stat meloxicam (MOBIC) tablet 04/06/2023 aborted fluticasone propionate (FLONASE) 50 mcg/actuation nasal spray See Instructions, SPRAY 1 SPRAY INTO EACH NOSTRIL TWICE A DAY NEEDED FOR NASAL CONGESTION, # 16 mL, 5 Refills, Maintenance, 06/14/21 13:01:00 EST, [facility]/pharmacy #[id number], 30, SPRAY 1 SPRAY INTO EACH NOSTRIL TWICE A DAY NEEDED FOR NASAL CONGESTION, 1... 04/06/2023 active naqjrem-oxxx-amkhc-o reg-capryl 100 mg-150 mg- 50 mg-150 mg capsule Take by mouth. 06/29/2023 active omeprazole (PriLOSEC) 20 mg capsule Take 20 mg by mouth in the morning. 04/06/2023 active albuterol HFA (ProAir HFA) 90 mcg/actuation inhaler Inhale. 04/06/2023 aborted amLODIPine (NORVASC) 5 mg tablet Take 5 mg by mouth in the morning. 04/06/2023 active Problems Problem Status Onset Date Problem Type Date of Resolution Source Other polyneuropathy active EncounterDiagnosisA ct [facility] Neuropathy of both feet active EncounterDiagnosisAct [facility] Balance problem active 2023-02-[address] [facility] Numbness active 2023-02-19 ProblemAct [facility] Osteoarthritis active 2023-02-19 ProblemAct [facility]
--- OUTSIDE RECORDS SUMMARY | 2024-05-19 03:03 | XMS_ITS ---
[facility] Address [address] [place] [address] Care Team Providers Care Staffing Mgr Name Role Phone Jodi LU, Frances Primary Care Provider Unavail able Black, Kaya Unavailable [phone] Allergies Allergen (clinical drug ingredient) Drug/Non Drug Allergy documented on EMR Reaction Allergy Type Onset Date Status epinephrine Epinephrine Unknown Drug Allergy Act justin Substance with sulfonamide structure and antibacterial mechanism of action (substance) Sulfa Antibiotics Unknown Drug Allergy Active REASON FOR VISIT Painful Nail(s), Painful Toe(s) Medications Medication SIG (Take, Route, Frequency, Duration) Notes Start Date End Date Status Calcium Active Turmeric Active amLODIPine Besylate 5 MG 1 tablet Orally Once a day Active Sertraline HCl 25 MG 1 tablet Orally Onc e a day Not-Taking D-Mannose Active Omeprazole Active Social History Tobacco Use: Social History [...] Status W/U Status Risk Notes Problem Acquired hammer toe of right foot (1665876373534344) Other hammer toe(s) (acquired), right foot (M20.41) Active confirmed Problem Localized, primary osteoarthritis of the ankle and/or foot (069923803) Arthritis of joint of lesser toe, right (M19.071) Active confirmed Vital Signs Height 5 ft 3 in in 08/29/2023 Weight 142 lbs 08/29/2023 BMI 25.15 kg/m2 08/29/2023 Encounters Encounter Location Date Provider Diagnosis [facility] [address] [address] 08/29/2023 Kaya Clifford Dystrophic nail L60. 3 ; Other hammer toe(s) (acquired), right foot M20.41 ; Pain in left toe(s) M79.675 and Pain in right toe(s) M79.674 Assessments Encounter Date Diagnosis (ICD Code) Assessment Notes Treatment Notes Treatment Clinical Notes Section Notes 08/29/2023 Dystrophic nail (ICD-10 - L60.3) 08/29/2023 Other hammer toe(s) (acquired), right foot (ICD-10 - M20.41) 08/29/2023 Pain in left toe(s) (ICD-10 - M79.675) 08/29/2023 Pain in right toe(s) (ICD-10 - M79.674) Plan Of Treatment Next Appt Details Follow Up: prn, Reason: Progress Notes * Morneo CHINOOB:1939 (83 yo F)Acc No.[id number]:08/29/2023 Progress Note Patient:?Precious Chino Provider:?Kaya Clifford DPM :1940???Age:83 Y???Sex:Female D ate:08/29/2023 Address:[address] [place], [place] [phone] Pcp:Frances Zapata MD Subjective: * Chief Complaints: * ???Painful Nail(s)Painful To e(s) * HPI: ???Painful Nails:?Treatments:?Urea 40% cream.?Toe pain:?Nature:?tenderness.?Location:?Right foot , 5th toe.?Duration:?several weeks.?Course:?worse.?Aggrevated by:?any [...] ?Marital status: . ?Occupation: Retired. * Medications:?TakingD-Mannose Calcium Turmeric amLODIPine Besylate 5 MG Tablet 1 tablet Orally Once a dayOmeprazole Taking D-Mannose Taking Calcium Taking Turmeric Taking amLODIPine Besylate 5 MG Tablet 1 tablet Orally Once a dayTaking Omeprazole Not-Taking/PRNSertraline HCl 25 MG Tablet 1 tablet Orally Once a dayMedication List reviewed and reconciled with the patientNot-Taking/PRN Sertraline HCl 25 MG Tablet 1 tablet [...] no over, nor underlapping , , Reveals pain/swelling/redness/enlargement of PIPJ , T9.?FOOTWEAR:?shoe gear properties exacerbate patients foot/toe deformity- too narrow.?Nails: ?NAILS are:? Elongated, overgrown, dystrophic TA.? Assessment: * Assessment: 1.?Other hammer toe(s) (acqu ired), right foot - M20.41 (Primary)?2.?Dystrophic nail - L60.3?3.?Pain in left toe(s) - M79.675?4.?Pain in right [...] have encouraged the patient to call the office.?Digital Treatment:?HT- I explained to the patient the possible etiologies of Hammertoes, including genetics/foot type/shoegear/activity level/exercise routine and the risks/benefits of all the different treatment options for their pain including: No treatment at all, Rest, Ice, New/supportive/wider/deeper Shoegear, Digital Padding/Strapping/Taping/Bracing/Gel protective sleeves, Foot/Ankle AFO Bracing, Stretching exercises, Deep Tissue Massage, Arch support/shoe inserts with splay metatarsal padding, and Custom orthoses. I insisted that any digital devices be removed daily and not worn overnight for safety. The patient is to carefully examine the toes daily for any skin irritation while using any splinting or padding device. The advantages and disadvantages of each option were discussed and the patients questions re: shoegear, padding, custom vs prefabricated inserts, activity level, and consistency in home treatment regimens for optimal success were answered to their verbally confirmed satisfaction.?Shoe Gear Counseling:?The patient and I reviewed the types of shoes they should be [...] patient verbally confirmed to understanding the information discussed.? * Follow Up:?prn * Images: * Sign [...] activity, change in shoes Painful Nails Treatments: Urea 40% cream Examination Category Sub-Category Detail Notes Category Not [...] shoe gear properties exacerbate patients foot/toe deformity- too narrow DIGITAL DEFORMITIES: Digital contracture , PIPJ, 2-5 B/L, incompl-reducable with WB, or to push-up test, no over, nor underlapping , , Reveals pain/swelling/redness/enlargement of PIPJ , T9 MUSCLE STRENGTH: [...]
== END 2024-05-13 15:18 | disposition home or self-care (01) ==
PROVIDERS: PCP Internal Medicine; Visit Provider Hospitalist
DX: R91.8 Other nonspecific abnormal finding of lung field (principal); G47.33 Obstructive sleep apnea (adult) (pediatric); Z99.89 Dependence on other enabling machines and devices; J45.40 Moderate persistent asthma, uncomplicated; J98.4 Other disorders of lung; J47.9 Bronchiectasis, uncomplicated; R05.1 Acute cough
CPT/HCPCS: 99214

== ENCOUNTER → 2024-05-13 14:08 | Outpatient (BNVA) | payer MEDICARE, OTHER, SELFPAY | PROVIDERS: PCP Internal Medicine; Visit Provider Hospitalist | DX: J45.40 Moderate persistent asthma, uncomplicated (principal); J98.4 Other disorders of lung; J47.9 Bronchiectasis, uncomplicated; R05.1 Acute cough; R91.8 Other nonspecific abnormal finding of lung field; G47.33 Obstructive sleep apnea (adult) (pediatric); Z99.89 Dependence on other enabling machines and devices; Z79.899 Other long term (current) drug therapy | CPT/HCPCS: 99212 ==

== ENCOUNTER 2024-12-06 09:58 | Outpatient (REF) | payer MEDICARE, OTHER, SELFPAY ==
--- NOTE | ~2024-12-06 | XR_ITS ---
EXAMINATION: XR CHEST CLINICAL INFORMATION: J45.40 - Moderate persistent asthma, uncomplicated COMPARISON: August 14, 2021. TECHNIQUE: 2 views of the chest were obtained. FINDINGS: Pulmonary reticular pattern. Bilateral apical lung scarring. Hyperinflated lungs. No consolidation, pleural effusion or pneumothorax. Cardiomediastinal silhouette size is normal. Osteopenia versus osteoporosis. S-shaped curvature of the thoracolumbar spine. Multilevel thoracolumbar spondylosis. Metallic coils likely in the epigastric periumbilical abdominal wall. XR/XR chest 2V IMPRESSION: Consider COPD emphysematous type changes without gross acute airspace disease. Electronically signed by: Fabien Marks MD 12/06/2024 11:22 AM EDT
== END 2024-12-06 09:59 | disposition home or self-care (01) ==
LOC: HO.XRAY 09:58
PROVIDERS: PCP Internal Medicine; Visit Provider Hospitalist
DX: R91.8 Other nonspecific abnormal finding of lung field (principal); J45.40 Moderate persistent asthma, uncomplicated; G47.33 Obstructive sleep apnea (adult) (pediatric); Z99.89 Dependence on other enabling machines and devices; J98.4 Other disorders of lung; J47.9 Bronchiectasis, uncomplicated; R05.1 Acute cough
CPT/HCPCS: 71046; 99212

== ENCOUNTER 2024-12-06 09:58 | Outpatient (AMB) | payer MEDICARE, OTHER, SELFPAY ==
[2024-12-06 10:01] VITALS: BP 110/50; PULSE 72; O2SAT 95; BMI 26.4
--- NOTE | 2024-12-06 10:01 | A.OFFVIS_ITS ---
Vital Signs 12/06/24 10:01 Height 5 ft 3 in Weight 148 lb 12.992 oz BMI 26.4 BP 110/50 L Blood Pressure Location Lt brachial Position Sitting Pulse 72 Pulse Source Pulse Oximeter Pulse Oximetry (%) 95 Oxygen Delivery Method Room Air Intake Visit Reasons: COPD Event Marketing Specialist Required: No Accompanied by: Self / Same As Patient Allergies sulfamethoxazole (From Bactrim) Allergy (Mild, Verified 12/06/24 10:04) Rash trimethoprim (From Bactrim) Allergy (Mild, Verified 12/06/24 10:04) Rash HPI Comments Details: The patient is an 84-year-old woman with a known history of asthma in addition to obstructive sleep apnea on CPAP. The CPAP therapy has been affective and beneficial. She does use it for more than 4 hours a night. she uses a nasal mask with good effect. She has been concerned because she has been getting bills from her [employer]. Therefore, I did call [employer] in reviewed the bills with them. They explained that she does not have any deals pending at this time. they will let the patient know as well. In the meantime her respiratory status has been stable. She has not had to use her rescue inhaler. Sometimes when she gets sick she likes to have Symbicort To use for period of time. She still has a cough. Usually intermittent [id number]. Usually nonproductive. She also had history of pulmonary nodules. At this time will request a chest x-ray 09/14/2020 the patient is here for pulmonary follow-up visit. Overall she is doing okay. She does complaint of increasing dyspnea on exertion. She states that she gained some weight during the pandemic. She typically goes for walks but lately she has felt more breathless. The for she does continue to use her respiratory therapy with the Symbicort. Although sometimes she forgets to do the 2nd do se. She has not had to use her rescue therapy although she knows she can use it when she gets short of breath due. In the meantime she continues uses CPAP. The CPAP therapy continues to be affecting beneficial. She is still struggling with the [employer] company and bills. I did reach out to the [employer]. It appears that her bills are intact in all taking care of. However, the renewals representative from [employer] will call the patient to clarify any uncertainties. The patient did not have a chest x-ray so therefore I will have her undergo an x-ray now. In the meantime she is concerned about the pulmonary nodules that had been diagnosed in the past. Therefore I will request her CT scan from [facility] to further evaluate her nodules and further management. 12/14/2020 the patient is here for pulmonary follow-up visit. Overall the patient is doing better. Her cough seems to be better. She has not been using the Symbicort at this time. She did undergo pulmonary function studies and we did review them. known obstructive process although she did have a mild restrictive ventilatory defect. Her previous chest x-rays have been okay. we did look at her CT scan that she had at [facility], although, we only got back a CT scan of the abdomen with minimal lung windows demonstrating clear lung bases. The patient continues to use her CPAP. The CPAP therapy continues to be effective in beneficial. She has a comfortable mask and she is getting supplies at this time. At this time will hold off on any additional studies and therapies. She can use her Symbicort as needed. 08/14/2021 the patient is here for a pulmonary follow-up visit. Since we last spoke she did develop a cold and then ultimately developed chest tightness and cough. She went to see her primary care doctor and was prescribed a short- acting beta agonist. She no longer had the Symbicort available. The inhaler has been helpful but she is not sure when to use it hilar use it. Therefore we spent some time in the office teaching her. We did provide her peak flow in her peak flow is 340 mL. She was then taught how to use her rescue inhaler however she could not do a without spacer. Therefore space was also provided. The patient is going to lock her numbers and she is going to return in 4 weeks or so and we can assess her airway resistance and assess to see if she needs to be on maintenance therapy. She is wondering about the diagnosis of asthma. Explained to her that this is a clinical diagnosis based on her symptoms and response to therapy. The patient is okay with that. The meantime she continues use her CPAP. The CPAP therapy continues to be affecting beneficial. She does use it for more than 4 hours. I did reach out to her [employer] company, [employer] in order to get access. 08/29/2021 the patient is here with her daughter and also her son is on the phone due to a policy of just 1 visit per patient. The patient had been having some worsening respiratory symptoms and was requests to have a chest x-ray. The x- ray was abnormal with some slight opacities in the upper lung zones. Therefore she was sent for CT scan of the chest which was personally by me. The the patient does have some apical scarring in nodular densities which are consistent with the findings on the x-ray. The scarring is also associated with some bronchiectatic changes. I was able to look at a CT scan from [facility] from 2016 which demonstrated the apical scarring along with bronchiectasis. But now she appears to also have pulmonary nodules measuring up to 3 mm in size in some areas of atelectasis. She has had CT scans at [facility]. I will request that her recent CT scan gets compared to the most recent CT scan at [facility]. She does have CT scans in multiple places. the patient also appears to have some increasing bronchiectatic changes at the bases. I do believe she that the patient has a chronic airway condition that is resulting in this and not a malignant process. The patient does have some nodularity to the scarring in the upper lung zones but she has had that in some time. The family is very concerned about the possibility of malignancy due to her decreasing energy decrease in appetite and fatigue. The reassuring that I do believe that the findings are more consistent with chronic airway disease and will try to get a sputum to try to assess for chronic smoldering infections and also request blood work to look for inflammatory conditions or immuno compromis ing conditions likely result in the bronchiectatic changes. She does not have a lot of mucus right now. I will provide her with a flutter valve in order to help clear secretions specially with bronchiectatic changes. In view of the patient's symptoms and the findings on the CT scan I will request a repeat CT scan in 6 months time to make sure that there is no interval worsening of the findings. 10/01/2021 the patient is here for a pulmonary follow-up visit. Overall the patient has been doing well. She continues to go for regular walks without significant respiratory limitations. We did request an Acapella valve. However, the patient does not feel like she needs 1. I did emphasize that walking will allow greater diaphragmatic excursion and that would also help with mucus clearance. We did review her pulmonary function studies that she had back in December 2020 demonstrating a mild restrictive ventilatory defect. Explained to her that this is very mouth finding it. It is likely the result of her apical scarring and atelectasis in the chest area. She was not able to produce any mucus to sent for any analysis in order to address the bronchiectatic changes. Likely that the bronchiectatic changes are primarily due to some traction bronchiectasis in addition to some mucus plugging. We did review her blood work which is reassuring without any evidence of any immunocompromised state that could result in a chronic smoldering infection. The patient does continue to use her CPAP. The CPAP therapy continues to be affecting beneficial. She does use it for more than 4 hours a night. At this point based on the pulmonary nodules the interstitial changes the atelectasis the bronchiectatic changes will plan to repeat the CT scan sometime in the fall and at that point will also have her undergo pulmonary function studies. 02/22/2022 the patient is here for a pulmonary follow-up visit. Overall she is doing well from a respiratory status. The patient does have a rescue inhaler but she has not needed it. She does stay active with all her activities of daily living and yd work and gardening without any limitations. Denies any mucus production. There was a question of bronchiectasis and previous CT scans although borderline. She did have a repeat CT scan to follow-up her nodules on 02/08/2022. We personally reviewed the images. She has not parenchymal scarring of the APCs bilaterally. These have not changed. Her pulmonary nodules have not changed. She does have 1 ground-glass nodular density in the right hemithorax that has not changed when compared to last year. She understands that the ground-glass nodular densities in to be monitor closely. Therefore will do another CT scan in a year's time. If at that point the nodular density has not changed will likely hold off on serial CT scans and just follow up p.r.n.. The patient also underwent pulmonary function studies demonstrating no obstructive nor restrictive ventilatory defects. She does have a mild diffusion impairment. PFTs appear to be improved. 03/19/2023 the patient is here for pulmonary follow-up visit. Overall the patient is doing well. She denies any worsening respiratory symptoms. She did have a recent CT scan of the chest demonstrating her baseline apical scarring with some traction bronchiectasis and nodular densities. The CT scan have not changed so therefore will hold off on additional CT scans at this time. She is also using her CPAP. CPAP therapy continues to be affecting beneficial. She does use a CPAP for more than 4 hours a night. We did talk about different mask. I did provide her with the N30 I small mask that she likes she is going to use. If this mask is helpful and comfortable for her she will call in order for us to send a prescription for the mask to her [employer] company. 05/13/2024 the patient is here for a pulmonary follow-up visit. The patient overall has been doing okay on until recently. For the last several days she has been complaining of a croupy cough. Also some chest and throat irritation. Prior to that she has been doing okay. She does use her CPAP every night. CPAP therapy has been affecting beneficial. She does use for more than 4 hours a night. Her average pressure is around 11. She currently has a nasal mask. She will benefit from a fullface mask but she is not sure at this time if she could tolerate it. In addition to that the patient does have a rescue inhaler albuterol which she uses as needed. She does not need a refill at this time. The patient is scheduled to undergo a total hip replacement on the left. Therefore, will go ahead and give her a course of azithromycin just for 5 days just to kind of clear any respiratory process that may be starting. But, from pulmonary standpoint patient may be able to proceed with surgery after the antibiotics and as long she is doing okay from respiratory status. 12/06/2024 the patient is here for pulmonary follow-up visit. She is complaining of worsening cough. The cough is nonproductive in nature and is moderate severity. Bothers her a lot. She does have a rescue inhaler but does not get significant improvement. She feels this bronchospastic in does have a wheeze. Indeed on exam she does have an expiratory wheeze. Will go and start her on a maintenance inhaler, Advair. She should use that 2 puffs twice a day. In addition to that she has a rescue inhaler she can use as needed. The patient had a CT scan last in 2022 demonstrating some bronchiectatic changes and also some scarring of the apices. No other significant findings. Her findings were all pretty stable compared to previous CAT scans. Will go ahead and request a chest x-ray at this time. And will reassess her symptoms in 4-6 months. If she has any worsening symptoms she will call. But I am hopeful that the maintenance inhaler will help her with the bronchospastic cough. If her x-ray is abnormal I will call her about doing additional imaging studies. [facility] Medical History (Updated 05/13/24 @ 21:22 by Russ Manrique MD) Pulmonary scarring Pulmonary nodules Bronchiectasis New abnormality on chest x-ray Chronic restrictive lung disease Pulmonary nodules KORI on CPAP Asthma Family History (Updated 03/23/20 @ 21:30 by Russ Manrique MD) Father No problems noted. Social History Patient Tobacco Use Status: Former Tobacco user Tobacco use type: Cigarette Years Smoked: 10 years Review of Systems Const Reports fatigue, Denies night sweats and Reports weight loss ENT Denies change in voice, Denies lip swelling, Denies mouth pain, Reports nasal congestion, Reports nasal discharge and Denies tongue swelling Card Denies chest pain and Denies dyspnea on exertion Resp Denies chest congestion, Reports cough, Denies dyspnea on exertion and Reports wheezing GI Denies abdominal pain Musc Reports as per HPI, Reports arthralgias and Reports limited range of motion Neuro Denies Neuro-related abnormal movements Psych Denies no additional complaints Endo Reports fatigue Mauricio/Lymph Denies easy bleeding and Denies lymphadenopathy Aller/Immun Denies lip swelling, Denies tongue swelling and Reports wheezing Physical Exam Vital Signs: Last Vital Signs Pulse 72 12/06/24 10:01 BP 110/50 L 12/06/24 10:01 Pulse Ox 95 12/06/24 10:01 Oxygen Delivery Method Room Air 12/06/24 10:01 BMI result Body Mass Index 26.4 Const General: alert Eyes Pupils: Equal, round and reactive pupils present Neck Neck: Yes normal visual inspection, Yes full ROM and Yes no lymphadenopathy Chest Chest palpation & inspection: normal inspection of the chest Resp Effort & Inspection: Actively coughing Quality: other (croup, mild) and prolonged expiratory phase Auscultation: no crackles, no rales, no rhonchi, wheezes and diminished lung sounds Cardio Rate: regular rate Rhythm: regular rhythm Heart sounds: S1 normal heart sound present and S2 normal heart sound present GI Palpation (GI): Soft to palpation and nontender Auscultation: normal bowel sounds Skin General skin exam: no rashes or lesions noted Neuro Cranial nerves: Yes Equal, round and reactive pupils present Extrem General: Yes no clubbing, cyanosis or edema Assessment & Plan Assessment & Plan (1) Pulmonary nodules: Comment: multiple solid nodules, 1 4-5mm GG nodule in the right hemithorax, stable Code(s): R91.8 - Other nonspecific abnormal finding of lung field Category: Medical (2) KORI on CPAP: Code(s): G47.33 - Obstructive sleep apnea (adult) (pediatric); Z99.89 - Dependence on other enabling machines and devices Category: Medical (3) Asthma: Code(s): J45.909 - Unspecified asthma, uncomplicated Category: Medical Qualifiers: Asthma complication type: uncomplicated Asthma persistence: persistent Asthma severity: moderate Qualified Code(s): J45.40 - Moderate persistent asthma, uncomplicated (4) Chronic restrictive lung disease: Comment: resolved Code(s): J98.4 - Other disorders of lung Category: Medical (5) Bronchiectasis: Comment: boderline Code(s): J47.9 - Bronchiectasis, uncomplicated Category: Medical Qualifiers: Bronchiectasis type: uncomplicated Qualified Code(s): J47.9 - Bronchiectasis, uncomplicated (6) Cough: Code(s): R05.9 - Cough, unspecified Category: Medical Qualifiers: Cough type: acute Qualified Code(s): R05.1 - Acute cough Plan Continue CPAP therapy. Will trial N30i small, needs supplies. Consider replacement APAP next yr (2018) Continue short-acting beta agonist as needed with spacer start Combination maintenace inhaler CXR, if abnormal consider CT chest F/U in 4-6 months Orders: Orders XR chest 2V Today J45.40 - Moderate persistent asthma, uncomplicated Medications: New fluticasone propion-salmeterol 115-21 mcg/actuation (Advair HFA) 2 puffs inhalation Q12H 12 grams 11RF 30 days Coding Level of Care Code Est Pt Level 4 (72088) Complex EM visit Add On G2211 Diagnoses Pulmonary nodules R91.8 KORI on CPAP G47.33; Z99.89 Moderate persistent asthma without complication J45.40 Asthma complication type: uncomplicated Asthma persistence: persistent Asthma severity: moderate Chronic restrictive lung disease J98.4 Bronchiectasis without complication J47.9 Bronchiectasis type: uncomplicated Acute cough R05.1 Cough type: acute Time Spent (min) 18
--- OUTSIDE RECORDS SUMMARY | 2024-12-06 10:34 | XMS_ITS | Clinical Summary ---
Author Organization [facility] [address] [facility] Address [address] [place] [address] Phone Care Team Providers Care Auto Camp Attendant Name Role Phone Frances Zapata MD Primary Care Provider [phone] Allergies Active Allergy Reactions Criticality Noted Date Comments Epinephrine 09/01/2018 Heart rate elevation, headache Sulfa (Sulfonamide Antibiotics) 12/05/2016 Sulfa Drugs Other Reaction(s): Rash/Dermatitis Sulfamethoxazole-Trimethopri m 12/05/2016 Bactrim [Septra I.v.] Other Reaction(s): Rash/Dermatitis Medications albuterol sulfate (ProAir RespiClick) 90 mcg/actuation aerosol powdr breath activated Inhale 2 Puffs into the lungs 4 times daily as needed. Active amLODIPine (NORVASC) 5 mg tablet Take 5 mg by mouth daily. Active ascorbic acid, vitamin C, 500 mg capsule Take by mouth. Active omeprazole (PriLOSEC) [address] capsule Take 20 mg by mouth daily. Active sertraline (ZOLOFT) 25 mg tablet Take 25 mg by mouth daily. 04/24/2021 Active cholecalciferol (VITAMIN D-3) 25 mcg (1,000 unit) capsule Vitamin D, Cholecalcife rol, 25 MCG (1000 UT) Tab Take by mouth Active amoxicillin-cla vulanate (AUGMENTIN) 875-125 mg per tablet Take 1 tablet by mouth 2 (two) times a day for 10 days. 20 each 11/18/2024 11/29/19 25 Active Problems Problem Noted Date Diagnosed Date Recurrent incisional hernia 06/28/2024 Abnormal ECG 07/17/2021 Chronic obstructive pulmonar y disease (COPD) ([facility] V24, [facility] V28) 09/02/2017 Essential hypertension 09/02/2017 Hyperlipidemia 09/02/2017 KORI (obstructive sleep apnea) 09/02/2017 Periodic limb movement disorder (PLMD) 8 Encounters Date Type Department Care Team Description 12/05/2024 1:15 PM EDT [facility] [phone] Teddy Torres PA Dysuria (Primary Dx) 11/18/2024 1:00 PM EDT [facility] [address] Malinda Winter NP Dysuria (Primary Dx); Acute cystitis without hematuria from Last 3 Months Surgical History Surgery Date Site/Laterality Comments APPENDECTOMY PROCEDURE: MD APPENDECTOMY HERNIA REPAIR 12/2017 PROCEDURE: HISTORICAL HERNIA REPAIR/MIA BOWEL RESECTION PROCEDURE: HISTORICAL BOWEL RESECTION COLONOSCOPY PROCEDURE: HISTORICAL COLONOSCOPY Medical History Medical History Date Comments Chronic obstructive pulmonar y disease (COPD) ([facility] V24, [facility] V28) 09/02/2017 DX:Chronic obstructi ve pulmonary disease (COPD) ([facility]) Hypertension 09/02/2017 DX:Hypertension Hyperlipidemia 09/02/2017 DX:Hyperlipidemi a Periodic limb movement disorder (PLMD) 8 DX:Periodic limb movement disorder (PLMD) KORI (obstructive sleep apnea) 09/02/2017 DX :KORI (obstructive sleep apnea) Recurrent incisional hernia DX:R ecurrent incisional hernia Abdominal hernia DX:Abdominal he rnia Anxiety DX:Anxiety Cervical spondylosis DX:Cervical spondylosis Closed fracture of left ankle DX :Closed fracture of left ankle Osteopenia DX:Osteopenia Pulmonary nodules DX:Pulmonary n odules Pancreatic cyst DX:Pancreatic cy st Restless leg syndrome DX:Restles s leg syndrome Sinusitis DX:Sinusitis Family History Medical History Relation Name Comments Coronary artery disease Father Heart attack Father Coronary artery disease Mother Rheum arthritis Sister Relation Name Status Comments Father Mother Sister Social History Tobacco Use Types Packs/Day Years Used Date Smoking Tobacco: Former Cigarettes Smokeless Tobacco: Never Alcohol Use Standard Drinks/Week Comments Never 0 (1 standard drink = 0.6 oz pur e alcohol) Comments Unknown Sex and Gender Information Value Date Recorded Sex Assigned at Not on file Legal Sex Female 12:43 PM EST Gender Identity Not on file Sexual Orientation Not on file Obstetrics History Last Filed Vital Signs Vital Sign Reading Time Taken Comments Blood Pressure 139/63 12/05/2024 1:30 PM EDT Pulse 81 12/05/2024 1:30 PM EDT Temperature 36.1 C (97 F) 12/05/2024 1:30 PM EDT Respiratory Rate - - Oxygen Saturation 99% 12/05/2024 1:30 PM EDT Inhaled Oxygen Concentration - - Weight 62.6 kg (138 lb) 08/17/2021 7:38 AM EST Height 160 cm (5' 3 ) 08/17/2021 7:38 AM EST Body Mass Index 24.45 08/17/2021 7:38 AM EST Plan of Treatment Upcoming Encounters Date Type Department Care Team (Late st Contact Info) Description 03/07/2025 1:00 PM EDT Office Visit Urogynecology - [place] [address] [place] [address] Louise Whitney MD [address] [place] [address] Health Maintenance Due Date Last Done Comments Cholesterol Screening (Lipid Panel) 05/07/2022 Depression Screening 05/07/2022 Falls Risk Assessment 05/07/2022 Social Influencers of Health Screening 05/07/2022 Hypertension/CHF/CAD Annual BMP Blood Test 05/19/2022 Medicare Annual Wellness Visit 01/28/2024 01/27/2023 COVID-19 Vaccine ( season) 2024 03/10/2024, 03/26/2023, 02/27/2022, Additional history exists DTaP,Tdap,and Td Vaccines (3 - Td or Tdap) 11/03/2031 11/02/2021, 09/08/2011 Osteoporosis Screening (Bone Density Screening) 02/07/2033 02/07/2023, 10/03/2020 Pneumococcal Vaccine: 50+ Years Completed 03/26/2017, 01/03/2015 Zoster Vaccines Completed 10/08/2020, 04/03/2020 RSV Immunization Adult Patients Completed 05/09/2023 Influenza Vaccine Completed 03/08/2024, , 04/03/2022, Additional history exists HIB Vaccines Aged Out No longer eligi ble based on patient's age to complete this topic HPV Vaccines Aged Out No longer eligi ble based on patient's age to complete this topic Hepatitis A Vaccines Aged Out No long er eligible based on patient's age to complete this topic Hepatitis B Vaccines Aged Out No long er eligible based on patient's age to complete this topic IPV Vaccines Aged Out No longer eligi ble based on patient's age to complete this topic MMR Vaccines Aged Out No longer eligi ble based on patient's age to complete this topic Meningococcal ACWY Vaccine Aged Out N o longer eligible based on patient's age to complete this topic Meningococcal B Vaccine Aged Out No l onger eligible based on patient's age to complete this topic RSV Immunization Patients Under 20 months Aged Out No longer eligible based on patient's age to complete this topic Varicella Vaccines Aged Out No longer eligible based on patient's age to complete this topic Procedures Procedure Name Priority Date/Time Associated Diagnosis Comments POC URINE NON-AUTO W/O MICRO Routine 12/05/2024 3:53 PM EDT Dysuria URINALYSIS MICROSCOPIC ONLY Routine 12/05/2024 1:57 PM EDT Dysuria URINALYSIS MICROSCOPIC ONLY Routine 12/05/2024 1:57 PM EDT Dysuria VAGINITIS PATHOGENS BY PCR Routine 12/05/2024 1:57 PM EDT Dysuria POC URINE NON-AUTO W/O MICRO Routine 11/18/2024 6:46 PM EDT Dysuria CULTURE URINE Routine 11/18/2024 4:14 PM EDT Dysuria EDDIE DEXA AXIAL SKELETON Routine 02/07/2023 10:25 AM EDT Encounter for screening for osteoporosis from Last 3 Months or Most Recently Relevant to Health Maintenance Results * (ABNORMAL) POC Urine Non-Auto W/O Micro (12/05/2024 3:53 PM EDT) Only the most recent of2 resultswithin the time period is included. GLUCOSE POC Negative Negative, Trace mg/dL Leukocytes UA POC 2+(A) Negative mg/dL Nitrite UA POC Positive Urobilinogen UA POC 0.2 E.U./dL mg/dL Protein UA POC Positive Positive, Negative PH UA POC 5.0 RAFY/HM UA POC 250(A) Negative Specific [place] UA POC 1.020 Ketones UA POC Negative Negative Bilirubin UA POC Negative Negative Urine Urine specimen obtained by clean catch procedure / Unknown 12/05/2024 3:53 PM EDT Teddy [place]GL[place] POINT OF CARE TEST ENTER/E DIT ORDERABLES Final Result * (ABNORMAL) Urinalysis microscopic only (12/05/2024 1:57 PM EDT) Pathologist [facility] RBC, Urine 78.3(H) 0 - 4 /HPF LAB URINALYSIS - AUTOMATED METHOD 12/05/2024 6:44 PM EDT [facility] WBC, Urine 3,133.8(H ) 0 - 4 /HPF LAB URINALYSIS - AUTOMATED METHOD 12/05/2024 6:44 PM [facility] Squamous Epithelial, Urine 4 0 - 60 /LPF LAB URINALYSIS - AUTOMATED METHOD 12/05/2024 6:44 PM T [facility] Bacteria, Urine Moderate( A) Negative /HPF LAB URINALYSIS - AUTOMATED METHOD 12/05/2024 6:44 PM [facility] Hyaline Casts, Urine 1.4 0 - 3 /LPF LAB URINALYSIS - AUTOMATED METHOD 12/05/2024 6:44 PM [facility] Urine Urine specimen obtained by clean catch procedure / Unknown Non-blood Collection / Unknown 12/05/2024 1:57 PM EDT 12/05/2024 1:57 PM EDT Teddy ENGL[place] LAB URINE ORDERABLES Final Result Performing Organization Address [facility] Co de Phone Number [facility] [address] [place] [address], * Vaginitis pathogens molecular study (12/05/2024 1:57 PM EDT) Trichomonas vaginalis Negative Negative 12/06/2024 10:17 AM EDT [facility] Gardnerella vaginalis Negative Negative 12/06/2024 10:17 AM EDT [facility] Mehreen Species Negative Negative 10:17 AM EDT [facility] Swab Vaginal structure / Unknown Non-blood Collection / Unknown 12/05/2024 1:57 PM EDT 12/05/2024 1:57 PM EDT Teddy EN[place] LAB MICROBIOLOGY - GENERAL ORDERABLES Final Result Performing Organization Address [facility] Co de Phone Number [facility] [address] [place] [address], * Culture urine (11/18/2024 4:14 PM EDT) Culture, Urine >100,000 CFU/mL Mixed urogenital eileen, no uropathogens present. Suggest repeat specimen if clinically indicated. 11/20/2024 1:18 PM EDT [facility] Urine Urine specimen obtained by clean catch procedure / Unknown Non-blood Collection / Unknown 11/18/2024 4:14 PM EDT 11/18/2024 4:14 PM EDT Malinda Winter NP LAB MICROBIOLOGY - GENERAL ORD ERABLES Final Result Performing Organization Address City/[facility]/ZIP Co de Phone Number [facility] [address] [place] [address], [place] [phone] * EDDIE DEXA AXIAL SKELETON (02/07/2023 10:25 AM EDT) Anatomical Region Laterality Modality Mammography 02/07/2023 9:52 AM EDT Narrative 02/07/2023 10:25 AM EDT [facility] Diagnostic Imaging Department [address] [place] [address] Patient: PRECIOUS CHINO /Age/Sex: 1940 - 83 - F Unit#: [id number] Location/Status: SPDIMA/REG CLI Mnemonic[facility] Ordering Physician: FRANCES ZAPATA MD [facility] Axial Skeleton - 02/07/23 - 0 Report Status:Signed HISTORY: The patient is an 83-year-old postmenopausal female with clinical concern for metabolic bone disease. FINDINGS: Dual energy x-ray absorptiometry of the lumbar spine and femurs is performed. The mean bone mineral density at L1-2 is 0.818 gm/cm2 which is 70% of that of young normals and 80% of that of age matched controls. This yields a T- score of -2.9 and a Z-score of -1.0 which is diagnostic of osteoporosis. The mean bone mineral density of the femurs bilaterally is 0.771 gm/cm2 which is 76% of that of young normals and 107% of that of age matched controls. This yields a T-score of -1.9 and a Z-score of 0.4 which is diagnostic of osteopenia. However, the T-score of the right femoral neck is -2.5 which is diagnostic of osteoporosis. IMPRESSION: 1. Osteoporosis. There has been a decrease of 7.6% in bone mineral density in the lumbar spine since the prior examination of 10/02/2020. There has been a decrease of 3.7% in bone mineral density in the right femur and no change in bone mineral density in the left femur. 2. FRAX analysis yields a 10-year probability of major osteoporotic fracture of 26.7% and a 10-year probability of hip fracture of 8.8%. Code 89640 Dictating Physician: GORDY RODAS MD Electronically Signed by: GORDY RODAS MD Dic Date/Time: 02/07/23 1024 Sign date/Time: 02/07/23 1025 Procedure Note Gordy Rodas MD - 07/15/2023 [facility] Diagnostic Imaging Department [address] [place] [address] Patient: PRECIOUS CHINO D.O.B./Age/Sex: 1940 - 83 - F Unit#: [id number] [facility] Mn[facility] Ordering Physician: FRANCES ZAPATA MD Eddie Dexa Axial Skeleton - 02/07/23 - 1020 Report Status:Signed HISTORY: The patient is an 83-year-old postmenopausal female withclinical concern for metabolic bone disease. FINDINGS: Dual energy x-ray absorptiometry of the lumbar spine and femursis performed. The mean bone mineral density at L1-2 is 0.818 gm/cm2 which is70% of that of young normals and 80% of that of age matched controls. This yieldsa T- score of -2.9 and a Z-score of -1.0 which is diagnostic of osteoporosis. The mean bone mineral density of the femurs bilaterally is 0.771 gm/od6kjqdx is 76% of that of young normals and 107% of that of age matched controls.This yields a T-score of -1.9 and a Z-score of 0.4 which is diagnostic ofosteopenia. However, the T-score of the right femoral neck is -2.5 which is diagnosticof osteoporosis. IMPRESSION: 1. Osteoporosis. There has been a decrease of 7.6% in bone mineraldensity in the lumbar spine since the prior examination of 10/02/2020. There has christopher decrease of 3.7% in bone mineral density in the right femur and no changein bone mineral density in the left femur. 2. FRAX analysis yields a 10-year probability of major osteoporoticfracture of 26.7% and a 10-year probability of hip fracture of 8.8%. Code 41098 Dictating Physician: GORDY RODAS MD Electronically Signed by: GORDY RODAS MD Dic Date/Time: 02/07/23 1024 Sign date/Time: 02/07/23 1025 Frances Zapata MD IMG BI PROCEDURES Final Result from Last 3 Months or Most Recently Relevant to Health Maintenance Insurance MEDICARE [facility] Care Teams Auto Camp Attendant Relationship Specialty Start Date End Date Frances Zapata MD [address] [place] [id number] PCP - General Internal Medicine 11/20/16
== END 2024-12-06 10:33 | disposition home or self-care (01) ==
LOC: HO.HPS 09:59
PROVIDERS: PCP Internal Medicine; Visit Provider Hospitalist
DX: R91.8 Other nonspecific abnormal finding of lung field (principal); G47.33 Obstructive sleep apnea (adult) (pediatric); Z99.89 Dependence on other enabling machines and devices; J45.40 Moderate persistent asthma, uncomplicated; J98.4 Other disorders of lung; J47.9 Bronchiectasis, uncomplicated; R05.1 Acute cough
CPT/HCPCS: 99214; G2211

== ENCOUNTER → 2024-12-06 10:41 | Outpatient (BNV) | payer MEDICARE, OTHER, SELFPAY | PROVIDERS: PCP Internal Medicine; Visit Provider Radiology Diagnostic Radiology | DX: J45.40 Moderate persistent asthma, uncomplicated (principal) | CPT/HCPCS: 71046 ==

== ENCOUNTER 2025-02-16 14:23 | Outpatient (AMB) | payer MEDICARE, OTHER, SELFPAY ==
--- OUTSIDE RECORDS SUMMARY | 2024-05-21 07:15 | XMS_ITS ---
Author Organization [facility] Address [address] [place] [address] Care Team Providers Care Jewelry Engraver Name Role Phone Jodi LU, Frances Primary Care Provider Unavail Kaya Gilbert Unavailable [phone] Encounters Encounter Location Date Provider Diagnosis [address] [address] 05/21/2024 Kaya Clifford Plan Of Treatment No Information Progress Notes * Moreno CHINOOB:1939 (85 yo F)Acc No.[id number]:05/21/2024 Progress Note Patient: Precious REICH Provider: Esteban Clifford DPM :1940 A ge:84 Y S ex:Female Date:05/21/2024 Address:[address] [place], [place] [id number] Pcp:Frances Zapata MD Subjective: * Chief Complaints: [...] Date: 07/22/2023 Generated for Printi ng/Faxing/eTransmitting on: 0 02/16/2025 05:42 PM EDT
--- NOTE | 2025-02-16 14:40 | MHC.OFFVIS ---
Intake Visit Reasons: dysuria Intake Note: New Patient is present for dysuria , Nocturia , incontinence Urology Rx:none PVR:89 mls Blood Thinners:none Imaging completed: none Farm Service Consultant Required: No Accompanied by: Self / Same As Patient Allergies sulfamethoxazole (From Bactrim) Allergy (Mild, Verified 02/16/25 14:56) Rash trimethoprim (From Bactrim) Allergy (Mild, Verified 02/16/25 14:56) Rash PFSH Medical History (Updated 02/16/25 @ 15:28 by Steve Lawrence MD) Pulmonary scarring Pulmonary nodules Bronchiectasis New abnormality on chest x-ray Chronic restrictive lung disease Pulmonary nodules KORI on CPAP Asthma Family History (Updated 03/23/20 @ 21:30 by Russ Manrique MD) Father No problems noted. Social History Patient Tobacco Use Status: Former Tobacco user Tobacco use type: Cigarette Years Smoked: 10 years Office Procedures Post Void Residual Post Residual Void Post Void Residual (PVR): 89 [id number] Void Residual by ultrasound Results AMB Urinalysis, Automated UA Leukoctes 125 Jethro/uL Last Edit by KIRSTEN Lamas on 02/16/25 16:23 UA Nitrite Negative Last Edit by KIRSTEN Lamas on 02/16/25 16:23 UA Urobilinogen 0.2 mg/dL Last Edit by KIRSTEN Lamas on 02/16/25 16:23 UA Protein 0 mg/dL Last Edit by KIRSTEN Lamas on 02/16/25 16:23 UA pH 6.0 Last Edit by KIRSTEN Lamas on 02/16/25 16:23 UA Blood 25 Abhi/uL Last Edit by KIRSTEN Lamas on 02/16/25 16:23 UA Specific [place] 1.015 Last Edit by KIRSTEN Lamas on 02/16/25 16:23 UA Ketone Negative Last Edit by KIRSTEN Lamas on 02/16/25 16:23 UA Bilirubin 1 mg/dL Last Edit by KIRSTEN Lamas on 02/16/25 16:23 UA Glucose 0 mg/dL Last Edit by KIRSTEN Lamas on 02/16/25 16:23 Assessment & Plan Assessment & Plan (1) Dysuria: Code(s): R30.0 - Dysuria Category: Medical (2) Nocturia more than twice per night: Code(s): R35.1 - Nocturia Category: Medical (3) Recurrent UTI (urinary tract infection): Code(s): N39.0 - Urinary tract infection, site not specified Category: Medical (4) Genitourinary syndrome of menopause: Code(s): N95.8 - Other specified menopausal and perimenopausal disorders Category: Medical Orders: Orders AMB Post Void Residual by ultrasound Today R35.1 - Nocturia AMB Urinalysis Automated Today Z13.9 - Encounter for screening, unspecified Medications: New ascorbic acid (vitamin C) 1,000 mg PO DAILY 90 days 90 tabs 1RF N39.0 - Urinary tract infection, site not specified methenamine hippurate 1 g PO DAILY 90 days 90 tabs 1RF N39.0 - Urinary tract infection, site not specified estradiol 0.01%(0.1mg/gram) vaginal 3XW apply pea sized amount to urethra 30 days 42.5 grams 1RF N39.0 - Urinary tract infection, site not specified Coding Diagnoses Dysuria R30.0 Nocturia more than twice per night R35.1 Recurrent UTI (urinary tract infection) N39.0 Genitourinary syndrome of menopause N95.8 CPT Codes Post Residual Void - PVR CPT Code: 27179-Uays Void Residual by ultrasound ([id number])
--- OUTSIDE RECORDS SUMMARY | 2025-02-16 17:43 | XMS_ITS ---
Author Name [facility] Organization Unknown Results Test Name/Text Value Interpretation Date Range Source BETA 0.7 g/dL Normal 04/16/2023 0.6 - 1.1 [facility] TPE INTERPRETATION NEW Normal 04/16/2023 [facility] ALPHA 1 0.1 g/dL Normal 04/16/2023 0.1 - 0.2 [facility] IMMUNOFIXATION Quantitatively IgG, IgA, and IgM are within the appropriate reference intervals. No abnormalities are noted on this immunofixation electrophoresis. Normal 04/16/2023 [facility] % BETA 10.1 % Normal 04/16/2023 8.9 - 14.9 [facility] GAMMA 0.8 g/dL Normal 04/16/2023 0.5 - 1.2 [facility] IMMUNOGLOBULIN M 152.0 mg/dL Normal 04/16/2023 22 - 293 [facility] IMMUNOGLOBULIN A 216.0 mg/dL Normal 04/16/2023 82 - 460 [facility] PROTEIN TOTAL 6.8 g/dL Normal 04/16/2023 6.2 - 8.1 [facility] ALPHA 2 % 10.3 % Normal 04/16/2023 8.6 - 13.1 [facility] SIGNED OUT BY: Sarah Moe, PhD Normal 04/16/2023 [facility] ALPHA 2 0.7 g/dL Normal 04/16/2023 0.6 - 0.9 [facility] ALPHA 1 % 2.0 % Normal 04/16/2023 1.3 - 3.5 [facility] ALBUMIN INDEX 4.5 g/dL Normal 04/16/2023 3.8 - 5.3 [facility] IMMUNOGLOBULIN G 1091.0 mg/dL Normal 04/16/2023 624 - 176 6 [facility] GAMMA % 11.2 % Normal 04/16/2023 7.3 - 17 [facility] ALBUMIN % 66.4 % Normal 04/16/2023 57.1 - 71.3 [facility] RAMAN PATTERN Homogeneous Normal 04/16/2023 [facility] ANTI-NUCLEAR ANTIBODY (RAMAN) Positive Abnormal 04/16/2023 - [facility] RAMAN TITER 1 1:160 Abnormal 04/16/2023 - [facility] VITAMIN B12 150.0 pg/mL Normal 04/16/2023 [facility] FOLATE 12.7 ng/mL Normal 04/16/2023 7 - 31.4 [facility] IMMUNOGLOBULIN G 1091.0 mg/dL Normal 04/16/2023 624 - 176 6 [facility] IMMUNOGLOBULIN A 216.0 mg/dL Normal 04/16/2023 82 - 460 [facility] IMMUNOGLOBULIN M 152.0 mg/dL Normal 04/16/2023 22 - 293 [facility] THYROID STIM HORMONE 3.11 uIU/mL Normal 04/16/2023 0.3 5 - 4.94 [facility] PROTEIN TOTAL 6.8 g/dL Normal 04/16/2023 6.2 - 8.1 [facility] SEDIMENTATION RATE, ERYTHROCYTE 37.0 mm Above high normal 04/16/2023 0 - 20 [facility] History of Medication Use Medication Directions Dispensed Refills Start Date End Date Stat us omeprazole (PriLOSEC) 20 mg capsule Take 20 mg by mouth in the morning. 12/22/2022 active fluticasone propionate (FLONASE) 50 mcg/actuation nasal spray See Instructions, SPRAY 1 SPRAY INTO EACH NOSTRIL TWICE A DAY NEEDED FOR NASAL CONGESTION, # 16 mL, 5 Refills, Maintenance, 06/14/21 13:01:00 [facility], [facility]/pharmacy #[id number], 30, SPRAY 1 SPRAY INTO EACH NOSTRIL TWICE A DAY NEEDED FOR NASAL CONGESTION, 1... 06/14/2021 active amLODIPine (NORVASC) 5 mg tablet Take 5 mg by mouth in the morning. active Allergies Allergen Reaction Severity Comment Documented Date Source Statu s SULFAMETHOXAZOLE-TRIMETHOPRIM RASH hives 12/05/2016 [facility] active Problems Problem Status Onset Date Problem Type Date of Resolution Source Other polyneuropathy active EncounterDiagnosisA ct [facility] Neuropathy of both feet active EncounterDiagnosisAct [facility] Numbness active 2023-02-19 ProblemAct [facility] Balance problem active 2023-02-[address] [facility] Osteoarthritis active 2023-02-19 ProblemAct [facility] Encounters Encounter Type Encounter Reason Primary Diagnosis Location Date Ambulatory Other specified polyneuropathies Other specified polyneuropathies [facility] 04/16/2023 Ambulatory polyneuropathy polyneuropathy [facility] 01/2023 Ambulatory Other specified polyneuropathies Other specified polyneuropathies [facility] 02/19/2023 Care Team Organization Name Specialty Phone Email Start Date End Cheo avila [facility] 10/28/2023 [facility] PCP [facility] 06/29/2023 [facility] PCP Primary Care 02/19/2023
--- OUTSIDE RECORDS SUMMARY | 2025-02-16 17:43 | XMS_ITS | Clinical Summary ---
Author Organization [facility] Address [address] [place] [address] Care Team Providers Care Harvest Worker Name Role Phone Pcp, No MD Primary Care Provider Unavailabl e Allergies Active Allergy Reactions Criticality Noted Date Comments Sulfamethoxazole-Trimethoprim Rash Low 2016 hives Medications omeprazole (PriLOSEC) 20 mg capsule Take 20 mg by mouth in the morning. 12/22/2022 Active amLODIPine (NORVASC) 5 mg tablet Take 5 mg by mouth in the morning. Active fluticasone propionate (FLONASE) 50 mcg/actuation nasal spray See Instructions , SPRAY 1 SPRAY INTO EACH NOSTRIL TWICE A DAY NEEDED FOR NASAL CONGESTION, # 16 mL, 5 Refills, Maintenance, 06/14/21 13:01:00 EST, [facility]/pharmacy #[id number], 30, SPRAY 1 SPRAY INTO EACH NOSTRIL TWICE A DAY NEEDED FOR NASAL CONGESTION, 1... 06/14/2021 Active calcium carbonate (CALCIUM 500 ORAL) Take by mouth. Active mjizowu-nwic-rs kkf-zgdr-khqtja 100 mg-150 mg- 50 mg-150 mg capsule Take by mouth. Active Active Problems Problem Noted Date Diagnosed Date Numbness 02/19/2023 Balance problem 02/19/2023 Osteoarthritis 02/19/2023 Family History Medical History Relation Comments Heart disease Father Arthritis Mother Relation Status Comments Father Mother Social History Tobacco Use Types Packs/Day Years Used Date Smoking Tobacco: Never Smokeless Tobacco: Never Tobacco Cessation:Counseling Given: Not Answered Alcohol Use Standard Drinks/Week Comments Never 0 (1 standard drink = 0.6 oz pur e alcohol) Comments Unknown Sex and Gender Information Value Date Recorded Sex Assigned at Not on file Legal Sex Female 2:22 AM EST Gender Identity Not on file Sexual Orientation Not on file Last Filed Vital Signs Vital Sign Reading Time Taken Comments Blood Pressure 146/71 04/16/2023 3:00 PM EST Pulse 82 04/16/2023 3:00 PM EST Temperature - - Respiratory Rate - - Oxygen Saturation - - Inhaled Oxygen Concentration - - Weight 66.2 kg (146 lb) 04/16/2023 3:00 PM EST Height 154.9 cm (5' 1 ) 04/16/2023 3:00 PM EST Body Mass Index 27.59 04/16/2023 3:00 PM EST Plan of Treatment Health Maintenance Due Date Last Done Comments Bone Density Screening 1940 HIV Screening 1940 Medicare Annual Wellness (AWV) 1940 COVID-19 Vaccine ( season) 2025 03/26/2023, 02/27/2022, 09/14/2021, Additional history exists Influenza Vaccine (#1) 2025 03/09/2019 DTaP,Tdap,and Td Vaccines (3 - Td or Tdap) 11/03/2031 11/02/2021, 09/08/2011 Pneumococcal Vaccine, 50+ Years Completed 03/26/2017, 01/03/2015 Zoster Vaccines Completed 10/08/2020, 04/03/2020 HPV Vaccines Aged Out No longer eligi ble based on patient's age to complete this topic Hepatitis A Vaccines Aged Out No long er eligible based on patient's age to complete this topic Meningococcal Vaccine Aged Out No eldon bernadine eligible based on patient's age to complete this topic Insurance [facility]IC[facility] Care Teams Harvest Worker Relationship Specialty Start Date End Date PcpEthel MD [address] [place] [address] PCP - General Internal Medicine 01/29/23
--- OUTSIDE RECORDS SUMMARY | 2025-02-16 17:43 | XMS_ITS | Patient Health Record ---
[facility] Address [address] [place] [id number] Care Team Providers Care Facility Operations Manager Name Role Phone Frances Zapata MD Primary Care Provider Unavail able Macho Cliffordmie Unavailable [phone] Allergies Allergen (clinical drug ingredient) Drug/Non Drug [...] Problem Status W/U Status Risk Notes Problem Information temporarily unavailable Hallux valgus (acquired), left foot (M20.12) Active confirmed Problem Information temporarily unavailable Primary osteoarthritis , left ankle and foot (M19.072) Active confirmed Problem Information temporarily unavailable Hallux valgus (acquired), right foot (M20.11) Active confirmed Problem Information temporarily unavailable Non-pressure chronic ulcer of other part of left foot limited to breakdown of skin (L97.521) Active confirmed Problem Information temporarily unavailable Other hammer toe(s) (acquired), right foot (M20.41) Active confirmed Problem Information temporarily unavailable Other hammer toe(s) (acquired), right foot (M20.41) Active confirmed Problem Information temporarily unavailable Other hammer toe(s) (acquired), left foot (M20.42) Active confirmed Problem Information temporarily unavailable Unsteady gait (R26.81) Active confirmed Problem Information temporarily unavailable Hallux rigidus of left foot (M20.22) Active confirmed Problem Information temporarily unavailable Arthritis of joint of lesser toe, right (M19.071) Active confirmed Encounters Encounter Location Date Provider Diagnosis [facility] [address] [address] 05/18/2024 Kaya Clifford Plan Of Treatment No Information Insurance Providers Payer Name Payer Address Payer Phone Subscriber Number Group Number Insured Name Patient Relationship to Insured Coverage Start Date Coverage End Date Medicare National [facility] [address] [facility] [place] [address] [id number] Precious Ashby Self - patient is the insured [facility] [address] [place] [address] [id number] Precious Ashby Self - patient is the insured Medical (General) History Medical History History ICD Code Arthritis asthma High blood pressure Measles Mumps Chicken pox Surgical History Surgery Date(Month/Year) hysterectomy bone removal left hand bowel resection appendectomy
--- OUTSIDE RECORDS SUMMARY | 2025-02-16 17:43 | XMS_ITS | Clinical Summary ---
Author Organization 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 Active omeprazole (PriLOSEC) [address] capsule Take 20 mg by mouth daily. Active sertraline (ZOLOFT) 25 mg tablet Take 25 mg by mouth daily. 04/24/2021 Active cholecalciferol (VITAMIN D-3) 25 mcg (1,000 unit) capsule Vitamin D, Cholecalcife rol, 25 MCG (1000 UT) Tab Take by mouth Active Active Problems Problem Noted Date Diagnosed Date Recurrent incisional hernia 06/28/2024 Abnormal ECG 07/17/2021 Chronic obstructive pulmonar y disease (COPD) (CMS/HCC V24, CMS/HCC V28) 09/02/2017 Essential hypertension 09/02/2017 Hyperlipidemia 09/02/2017 KORI (obstructive sleep apnea) 09/02/2017 Periodic limb movement disorder (PLMD) 8 Encounters Date Type Department Care Team Description 12/31/2024 4:30 PM EDT Office Visit Walk[facility]In [facility] - [address] [phone] Costa Munguia NP Recurrent UTI (Primary Dx) 12/08/2024 Telephone Walk-In [facility] [address] [place] [phone] Teddy Torres PA 12/06/2024 Telephone Walk-In [facility] [address] [place] [phone] Teddy Torres PA 12/05/2024 1:15 PM EDT Office Visit Walk-In [facility] - [address] [phone] Teddy Torres PA Dysuria (Primary Dx) 11/18/2024 1:00 PM EDT Office Visit Walk-In [facility] - [address] [phone] Malinda Winter NP Dysuria (Primary Dx); Acute cystitis without hematuria from Last 3 Months Surgical History Surgery Date Site/Laterality Comments APPENDECTOMY PROCEDURE: [facility] APPENDECTOMY HERNIA REPAIR 12/2017 PROCEDURE: HISTORICAL HERNIA REPAIR/MIA BOWEL RESECTION PROCEDURE: HISTORICAL BOWEL RESECTION COLONOSCOPY PROCEDURE: HISTORICAL COLONOSCOPY Medical History Medical History Date Comments Chronic obstructive pulmonar y disease (COPD) ([facility] V24, [facility] V28) 09/02/2017 DX:Chronic obstructi ve pulmonary disease (COPD) ([facility]) Hypertension 09/02/2017 DX:Hypertension Hyperlipidemia 09/02/2017 DX:Hyperlipidemi a [...] Smoking Tobacco: Former Cigarettes Smokeless Tobacco: Never Tobacco Cessation:Counseling Given: Not [...] Sign Reading Time Taken Comments Blood Pressure 120/62 12/31/2024 4:31 PM EDT Pulse 76 12/31/2024 4:31 PM EDT Temperature 36.5 C (97.7 F) 12/31/2024 4:31 PM EDT Respiratory Rate - - Oxygen Saturation 98% 12/31/2024 4:31 PM EDT Inhaled Oxygen Concentration - - Weight 62.6 kg (138 lb) 08/17/2021 7:38 AM EST Height 160 cm (5' 3 ) 08/17/2021 7:38 AM EST Body Mass Index 24.45 08/17/2021 7:38 AM EST Plan of Treatment Health Maintenance Due Date Last Done Comments Cholesterol Screening (Lipid Panel) 05/07/2022 Falls Risk Assessment 05/07/2022 Social Influencers of Health Screening 05/07/2022 Hypertension/CHF/CAD Annual BMP Blood Test 05/19/2022 Medicare Annual Wellness Visit 01/28/2024 01/27/2023 Depression Screening 06/09/2024 COVID-19 Vaccine ( season) 2025 03/10/2024, 03/26/2023, 02/27/2022, Additional history exists Influenza Vaccine (#1) 2025 , 04/30/2023, 04/03/2022, Additional history exists DTaP,Tdap,and Td Vaccines (3 - Td or Tdap) 11/03/2031 11/02/2021, 09/08/2011 Osteoporosis Screening (Bone Density Screening) 02/07/2033 02/07/2023, 10/03/2020 Pneumococcal Vaccine: 50+ Years Completed 03/26/2017, 01/03/2015 Zoster Vaccines Completed 10/08/2020, 04/03/2020 RSV Immunization Adult Patients Completed 05/09/2023 HIB Vaccines Aged Out No longer eligi [...] Comments POC URINE NON-AUTO W/O MICRO Routine 12/31/2024 5:43 PM EDT Recurrent UTI CULTURE URINE Routine 12/31/2024 5:30 PM EDT Recurrent UTI POC URINE NON-AUTO W/O MICRO Routine 12/05/2024 3:53 PM EDT Dysuria URINALYSIS MICROSCOPIC ONLY Routine 12/05/2024 1:57 PM EDT Dysuria URINALYSIS MICROSCOPIC ONLY Routine 12/05/2024 1:57 PM EDT Dysuria VAGINITIS PATHOGENS BY PCR Routine 12/05/2024 1:57 PM EDT Dysuria CULTURE URINE Routine 12/05/2024 1:57 PM EDT Dysuria POC URINE NON-AUTO W/O MICRO Routine 11/18/2024 6:46 PM EDT Dysuria CULTURE URINE Routine 11/18/2024 4:14 PM EDT Dysuria EDDIE DEXA AXIAL SKELETON Routine 02/07/2023 10:25 AM EDT Encounter for screening for osteoporosis from Last 3 Months or Most Recently Relevant to Health Maintenance Results * (ABNORMAL) POC Urine Non-Auto W/O Micro (12/31/2024 5:43 PM EDT) Only the most recent of3 resultswithin the time period is included. Leukocytes UA POC 2+(A) Negative mg/dL Nitrite UA POC Positive Urobilinogen UA POC 0.2 E.U./dL mg/dL Protein UA POC Positive Positive, Negative PH UA POC 7.0 RAFY/HM UA POC 250(A) Negative Specific [place] UA POC <=1.005 Ketones UA POC 1+(A) Negative Bilirubin UA POC 1+(A) Negative Urine Urine specimen obtained by clean catch procedure / Unknown 12/31/2024 5:43 PM EDT Costa Munguia NP POINT OF CARE TEST ENTER/EDIT ORDERABLES Final Result * (ABNORMAL) Culture urine (12/31/2024 5:30 PM EDT) Only the most recent of3 resultswithin the time period is included. Pathologist [facility] Culture, Urine >=100,000 CFU/mL Klebsiella pneumoniae ssp ozaenae(A) CELE 01/03/2025 8:07 AM EDT [facility] Comment: This is an edited result. Previous organism was Gram negative bacilli on 01/02/2025 at 0941 EDT. Urine Urine specimen obtained by clean catch procedure / Unknown Non-blood Collection / Unknown 12/31/2024 5:30 PM EDT 12/31/2024 5:30 PM EDT Narrative Organism Antibiotic Method Susceptibility Klebsiella pneumoniae ssp ozaenae Amoxicillin/Clavulanate CELE <=2 ug/ml: Susceptible Klebsiella pneumoniae ssp ozaenae Ampicillin/Sulbactam CELE 4 ug/ml: Susceptible Klebsiella pneumoniae ssp ozaenae Piperacillin/Tazobactam CELE 8 ug/ml: Susceptible Klebsiella pneumoniae ssp ozaenae Cefazolin (Urine) CELE 2 ug/ml: Susceptible Klebsiella pneumoniae ssp ozaenae Cefoxitin CELE <=4 ug/ml: Susceptible Klebsiella pneumoniae ssp ozaenae Ceftazidime CELE <=0.5 ug/ml: Susceptible Klebsiella pneumoniae ssp ozaenae Ceftriaxone CELE <=0.25 ug/ml: Susceptible Klebsiella pneumoniae ssp ozaenae Cefepime CELE <=0.12 ug/ml: Susceptible Klebsiella pneumoniae ssp ozaenae Meropenem CELE <=0.25 ug/ml: Susceptible Klebsiella pneumoniae ssp ozaenae Amikacin CELE <=1 ug/ml: Susceptible Klebsiella pneumoniae ssp ozaenae Gentamicin CELE <=1 ug/ml: Susceptible Klebsiella pneumoniae ssp ozaenae Ciprofloxacin CELE <=0.06 ug/ml: Susceptible Klebsiella pneumoniae ssp ozaenae Levofloxacin CELE <=0.12 ug/ml: Susceptible Klebsiella pneumoniae ssp ozaenae Nitrofurantoin CELE 64 ug/ml: Intermediate Klebsiella pneumoniae ssp ozaenae Trimethoprim/Sulfamethoxazo le CELE <=20 ug/ml: Susceptible Costa Munguia NP LAB MICROBIOLOGY - GENERAL OR DERABLES Final Result [facility] [address] [place] [address], * (ABNORMAL) Urinalysis microscopic only (12/05/2024 1:57 PM EDT) RBC, Urine 78.3(H) 0 - 4 /HPF LAB URINALYSIS - AUTOMATED METHOD 12/05/2024 6:44 PM EDT [facility] WBC, Urine 3,133.8(H ) 0 - 4 /HPF LAB URINALYSIS - AUTOMATED METHOD 12/05/2024 6:44 PM EDT [facility] Squamous Epithelial, Urine 4 0 - 60 /LPF LAB URINALYSIS - AUTOMATED METHOD 12/05/2024 6:44 PM EDT [facility] Bacteria, Urine Moderate( A) Negative /HPF LAB URINALYSIS - AUTOMATED METHOD 12/05/2024 6:44 PM EDT [facility] Hyaline Casts, Urine 1.4 0 - 3 /LPF LAB URINALYSIS - AUTOMATED METHOD 12/05/2024 6:44 PM EDT [facility] Urine Urine specimen obtained by clean catch procedure / Unknown Non-blood Collection / Unknown 12/05/2024 1:57 PM EDT 12/05/2024 1:57 PM EDT us Teddy [place] LAB URINE ORDERABLES Final Result Performing Organization Address [facility] [address]/ZIP Co de Phone Number [facility] [address] [place] [address], [place] [phone] * Vaginitis pathogens molecular study (12/05/2024 1:57 PM EDT) Trichomonas vaginalis Negative Negative 12/06/2024 10:17 AM EDT [facility] Gardnerella vaginalis Negative Negative 12/06/2024 10:17 AM EDT [facility] Mehreen Species Negative Negative 10:17 AM EDT [facility] Swab Vaginal structure / Unknown Non-blood Collection / Unknown 12/05/2024 1:57 PM EDT 12/05/2024 1:57 PM EDT us Teddy [place] LAB MICROBIOLOGY - GENERAL ORDERABLES Final Result [facility] [address] [place] [address], [place] [phone] * EDDIE DEXA AXIAL SKELETON (02/07/2023 10:25 AM EDT) Anatomical Region Laterality Modality Mammography 02/07/2023 9:52 AM EDT Narrative 02/07/2023 10:25 AM EDT [facility] Diagnostic Imaging Department [address] [place] [id number] Patient: PRECIOUS CHINO /Age/Sex: 1940 - 83 - F Unit#: [id number] Location/Status: SPDIMA/REG CLI Mnemonic/[facility] Ordering Physician: FRANCES ZAPATA MD Eddie Dexa Axial Skeleton - 02/07/230 Report Status:Signed HISTORY: The patient is an [...] probability of hip fracture of 8.8%. Code 66091 Dictating Physician: GORDY RODAS MD Electronically Signed by: GORDY RODAS MD Dic Date/Time: 02/07/23 1024 Sign date/Time: 02/07/23 1025 Procedure Note Gordy Rodas MD - 07/15/2023 [facility] Diagnostic Imaging Department [address] [place] [address] Patient: ELINShahanaPRECIOUSNITHIN Macdonald./Age/Sex: 1940 - 83 - F Unit#: [id number] Location/Status: [facility] Mnemonic/Ordering Site: [facility] Ordering Physician: FRANCES ZAPATA MD Eddie Dexa Axial Skeleton - 02/07/23 - 1019 Report Status:Signed HISTORY: The patient is an [...] density of the femurs bilaterally is 0.771 gm/sz1evapu is 76% of that of young normals [...] probability of hip fracture of 8.8%. Code 26901 Dictating Physician: GORDY RODAS MD Electronically Signed by: GORDY RODAS MD Dic Date/Time: 02/07/23 1024 Sign date/Time: 02/07/23 1025 Frances Zapata MD IMG BI PROCEDURES Final Result from Last 3 Months or Most Recently Relevant to Health Maintenance Insurance MEDICARE [facility] A[place]BELLA [place]INAS [id number] Care Teams Needle Punch Machine Operator Helper Relationship Specialty Start Date End Date Frances Zapata MD [address] [place] [address] [place] [address] PCP - General Internal Medicine 11/20/16
== END 2025-02-16 15:31 | disposition home or self-care (01) ==
LOC: HO.HUSH 14:24
PROVIDERS: PCP Internal Medicine; Visit Provider Urology
DX: Z13.9 Encounter for screening, unspecified (principal)

== ENCOUNTER → 2025-02-16 14:23 | Outpatient (BNVA) | payer MEDICARE, OTHER, SELFPAY | PROVIDERS: PCP Internal Medicine; Visit Provider Urology | DX: R30.0 Dysuria (principal); R35.1 Nocturia; N39.0 Urinary tract infection, site not specified; N95.8 Other specified menopausal and perimenopausal disorders | CPT/HCPCS: 51798; 81003; 99202 ==

== ENCOUNTER 2025-05-24 09:10 | Outpatient (AMB) | payer MEDICARE, OTHER, SELFPAY ==
--- OUTSIDE RECORDS SUMMARY | 2024-05-21 06:15 | XMS_ITS ---
Author Organization [facility] Address [address] [place] [address] Care Team Providers Care Buildings Painter Name Role Phone Jodi LU, Frances Primary Care Provider Unavail Kaya Gilbert Unavailable [phone] Encounters Encounter Location Date Provider Diagnosis [address] [address] 05/21/2024 Kaya Clifford Plan Of Treatment No Information Progress Notes * Moreno CHINOOB:1939 (85 yo F)Acc No.[id number]:05/21/2024 Progress Note Patient: Precious REICH Provider: Esteban Clifford DPM :1940 A ge:84 Y S ex:Female Date:05/21/2024 Address:[address] [place], [place] [id number] Pcp:Frances Zapata MD Subjective: * Chief Complaints: * * Medical History: Objective: * Vitals: Assessment: Plan: * Treatment: * Images: * The named appointment provid er may or may not be the originator of this progress note, and it is not deemed complete until electronically signed by the appointment provider. Sign off status: Pending * Provider: Esteban Clifford DPM Date: 07/22/2023 Generated for Printi ng/Faxing/eTransmitting on: 07/25/2024 10:30 AM EST
[2025-05-24 09:15] VITALS: BP 110/52; PULSE 67; O2SAT 97
--- NOTE | 2025-05-24 09:15 | MHC.OFFVIS ---
Vital Signs 05/24/25 09:15 Height 5 ft 3 in BMI Reason not done Patient refused/unable BP 110/52 L Blood Pressure Location Lt brachial Position Sitting Pulse 67 Pulse Source Pulse Oximeter Pulse Oximetry (%) 97 Oxygen Delivery Method Room Air Intake Visit Reasons: COPD Magneto Electrician Required: No Color Paste Mixing Supervisor: Color Paste Mixing Supervisor offered & declined Accompanied by: Self / Same As Patient Allergies sulfamethoxazole (From Bactrim) Allergy (Mild, Verified 05/24/25 09:21) Rash trimethoprim (From Bactrim) Allergy (Mild, Verified 05/24/25 09:21) Rash HPI Comments Details: The patient is an 85-year-old woman with a known history of asthma in addition to obstructive sleep apnea on CPAP. The CPAP therapy has been affective and beneficial. She does use it for more than 4 hours a night. she uses a nasal mask with good effect. She has been concerned because she has been getting bills from her [employer]. Therefore, I did call [employer] in reviewed the bills with them. They explained that she does not have any deals pending at this time. they will let the patient know as well. In the meantime her respiratory status has been stable. She has not had to use her rescue inhaler. Sometimes when she gets sick she likes to have Symbicort To use for period of time. She still has a cough. Usually intermittent [id number]. Usually nonproductive. She also had history of pulmonary nodules. At this time will request a chest x-ray 09/14/2020 the patient is here for pulmonary follow-up visit. Overall she is doing okay. She does complaint of increasing dyspnea on exertion. She states that she gained some weight during the pandemic. She typically goes for walks but lately she has felt more breathless. The for she does continue to use her respiratory therapy with the Symbicort. Although sometimes she forgets to do the 2nd do se. She has not had to use her rescue therapy although she knows she can use it when she gets short of breath due. In the meantime she continues uses CPAP. The CPAP therapy continues to be affecting beneficial. She is still struggling with the [employer] company and bills. I did reach out to the [employer]. It appears that her bills are intact in all taking care of. However, the customer development representative from [employer] will call the patient to clarify any uncertainties. The patient did not have a chest x-ray so therefore I will have her undergo an x-ray now. In the meantime she is concerned about the pulmonary nodules that had been diagnosed in the past. Therefore I will request her CT scan from [facility] to further evaluate her nodules and further management. 12/14/2020 the patient is here for pulmonary follow-up visit. Overall the patient is doing better. Her cough seems to be better. She has not been using the Symbicort at this time. She did undergo pulmonary function studies and we did review them. known obstructive process although she did have a mild restrictive ventilatory defect. Her previous chest x-rays have been okay. we did look at her CT scan that she had at [facility], although, we only got back a CT scan of the abdomen with minimal lung windows demonstrating clear lung bases. The patient continues to use her CPAP. The CPAP therapy continues to be effective in beneficial. She has a comfortable mask and she is getting supplies at this time. At this time will hold off on any additional studies and therapies. She can use her Symbicort as needed. 08/14/2021 the patient is here for a pulmonary follow-up visit. Since we last spoke she did develop a cold and then ultimately developed chest tightness and cough. She went to see her primary care doctor and was prescribed a short-acting beta agonist. She no longer had the Symbicort available. The inhaler has been helpful but she is not sure when to use it hilar use it. Therefore we spent some time in the office teaching her. We did provide her peak flow in her peak flow is 340 mL. She was then taught how to use her rescue inhaler however she could not do a without spacer. Therefore space was also provided. The patient is going to lock her numbers and she is going to return in 4 weeks or so and we can assess her airway resistance and assess to see if she needs to be on maintenance therapy. She is wondering about the diagnosis of asthma. Explained to her that this is a clinical diagnosis based on her symptoms and response to therapy. The patient is okay with that. The meantime she continues use her CPAP. The CPAP therapy continues to be affecting beneficial. She does use it for more than 4 hours. I did reach out to her [employer] in order to get access. 08/29/2021 the patient is here with her daughter and also her son is on the phone due to a policy of just 1 visit per patient. The patient had been having some worsening respiratory symptoms and was requests to have a chest x-ray. The x-ray was abnormal with some slight opacities in the upper lung zones. Therefore she was sent for CT scan of the chest which was personally by me. The the patient does have some apical scarring in nodular densities which are consistent with the findings on the x-ray. The scarring is also associated with some bronchiectatic changes. I was able to look at a CT scan from [facility] from 2016 which demonstrated the apical scarring along with bronchiectasis. But now she appears to also have pulmonary nodules measuring up to 3 mm in size in some areas of atelectasis. She has had CT scans at [facility]. I will request that her recent CT scan gets compared to the most recent CT scan at [facility]. She does have CT scans in multiple places. the patient also appears to have some increasing bronchiectatic changes at the bases. I do believe she that the patient has a chronic airway condition that is resulting in this and not a malignant process. The patient does have some nodularity to the scarring in the upper lung zones but she has had that in some time. The family is very concerned about the possibility of malignancy due to her decreasing energy decrease in appetite and fatigue. The reassuring that I do believe that the findings are more consistent with chronic airway disease and will try to get a sputum to try to assess for chronic smoldering infections and also request blood work to look for inflammatory conditions or immuno compromising conditions likely result in the bronchiectatic changes. She does not have a lot of mucus right now. I will provide her with a flutter valve in order to help clear secretions specially with bronchiectatic changes. In view of the patient's symptoms and the findings on the CT scan I will request a repeat CT scan in 6 months time to make sure that there is no interval worsening of the findings. 10/01/2021 the patient is here for a pulmonary follow-up visit. Overall the patient has been doing well. She continues to go for regular walks without significant respiratory limitations. We did request an Acapella valve. However, the patient does not feel like she needs 1. I did emphasize that walking will allow greater diaphragmatic excursion and that would also help with mucus clearance. We did review her pulmonary function studies that she had back in December 2020 demonstrating a mild restrictive ventilatory defect. Explained to her that this is very mouth finding it. It is likely the result of her apical scarring and atelectasis in the chest area. She was not able to produce any mucus to sent for any analysis in order to address the bronchiectatic changes. Likely that the bronchiectatic changes are primarily due to some traction bronchiectasis in addition to some mucus plugging. We did review her blood work which is reassuring without any evidence of any immunocompromised state that could result in a chronic smoldering infection. The patient does continue to use her CPAP. The CPAP therapy continues to be affecting beneficial. She does use it for more than 4 hours a night. At this point based on the pulmonary nodules the interstitial changes the atelectasis the bronchiectatic changes will plan to repeat the CT scan sometime in the fall and at that point will also have her undergo pulmonary function studies. 02/22/2022 the patient is here for a pulmonary follow-up visit. Overall she is doing well from a respiratory status. The patient does have a rescue inhaler but she has not needed it. She does stay active with all her activities of daily living and yd work and gardening without any limitations. Denies any mucus production. There was a question of bronchiectasis and previous CT scans although borderline. She did have a repeat CT scan to follow-up her nodules on 02/08/2022. We personally reviewed the images. She has not parenchymal scarring of the APCs bilaterally. These have not changed. Her pulmonary nodules have not changed. She does have 1 ground-glass nodular density in the right hemithorax that has not changed when compared to last year. She understands that the ground-glass nodular densities in to be monitor closely. Therefore will do another CT scan in a year's time. If at that point the nodular density has not changed will likely hold off on serial CT scans and just follow up p.r.n.. The patient also underwent pulmonary function studies demonstrating no obstructive nor restrictive ventilatory defects. She does have a mild diffusion impairment. PFTs appear to be improved. 03/19/2023 the patient is here for pulmonary follow-up visit. Overall the patient is doing well. She denies any worsening respiratory symptoms. She did have a recent CT scan of the chest demonstrating her baseline apical scarring with some traction bronchiectasis and nodular densities. The CT scan have not changed so therefore will hold off on additional CT scans at this time. She is also using her CPAP. CPAP therapy continues to be affecting beneficial. She does use a CPAP for more than 4 hours a night. We did talk about different mask. I did provide her with the N30 I small mask that she likes she is going to use. If this mask is helpful and comfortable for her she will call in order for us to send a prescription for the mask to her [employer] company. 05/13/2024 the patient is here for a pulmonary follow-up visit. The patient overall has been doing okay on until recently. For the last several days she has been complaining of a croupy cough. Also some chest and throat irritation. Prior to that she has been doing okay. She does use her CPAP every night. CPAP therapy has been affecting beneficial. She does use for more than 4 hours a night. Her average pressure is around 11. She currently has a nasal mask. She will benefit from a fullface mask but she is not sure at this time if she could tolerate it. In addition to that the patient does have a rescue inhaler albuterol which she uses as needed. She does not need a refill at this time. The patient is scheduled to undergo a total hip replacement on the left. Therefore, will go ahead and give her a course of azithromycin just for 5 days just to kind of clear any respiratory process that may be starting. But, from pulmonary standpoint patient may be able to proceed with surgery after the antibiotics and as long she is doing okay from respiratory status. 12/06/2024 the patient is here for pulmonary follow-up visit. She is complaining of worsening cough. The cough is nonproductive in nature and is moderate severity. Bothers her a lot. She does have a rescue inhaler but does not get significant improvement. She feels this bronchospastic in does have a wheeze. Indeed on exam she does have an expiratory wheeze. Will go and start her on a maintenance inhaler, Advair. She should use that 2 puffs twice a day. In addition to that she has a rescue inhaler she can use as needed. The patient had a CT scan last in 2022 demonstrating some bronchiectatic changes and also some scarring of the apices. No other significant findings. Her findings were all pretty stable compared to previous CAT scans. Will go ahead and request a chest x-ray at this time. And will reassess her symptoms in 4-6 months. If she has any worsening symptoms she will call. But I am hopeful that the maintenance inhaler will help her with the bronchospastic cough. If her x-ray is abnormal I will call her about doing additional imaging studies. 05/24/2025 the patient is here for pulmonary follow-up visit. Overall the patient has been doing fairly well. Although she has been noticing some increased shortness of breath and chest tightness. Mttg-ay-iplrcmsl severity. She does have her rescue inhaler that does provide her some relief. She was supposed to be using Symbicort but it was too expensive and she could not afford it so therefore she is not using any maintenance therapy. I will go ahead and send her Wixela to the pharmacy with the hopes that is low in gray. If it is not she can always call us and we can find something else that we can provide her. In the meantime she continues use her CPAP. CPAP therapy continues to be affecting beneficial. Her AHI is within normal limits. Although she does complain of a dry mouth and also runs out of water throughout the night. It is likely that is because she is opening her mouth and she is leaking air through her mouth since he has an average of 20 L/min and higher likely from leakage through the mouth. I did send for her a chinstrap. She is going to try to use it along with the N20 AirTouch mask. Seems to be the best most comfortable mask for her. She will continue to monitor her to her symptoms. If her respiratory symptoms are no better will request additional imaging studies. Otherwise the patient follow-up in 4-6 months. If he has any concerns she can always call for further recommendations. [facility] Medical History (Updated 02/16/25 @ 15:28 by Steve Lawrence MD) Pulmonary scarring Pulmonary nodules Bronchiectasis New abnormality on chest x-ray Chronic restrictive lung disease Pulmonary nodules KORI on CPAP Asthma Family History (Updated 03/23/20 @ 21:30 by Russ Manrique MD) Father No problems noted. Social History Patient Tobacco Use Status: Former Tobacco user Tobacco use type: Cigarette Years Smoked: 10 years Review of Systems Const Reports fatigue, Denies night sweats and Reports weight loss ENT Denies change in voice, Denies lip swelling, Denies mouth pain, Reports nasal congestion, Reports nasal discharge and Denies tongue swelling Card Denies chest pain and Denies dyspnea on exertion Resp Denies chest congestion, Reports cough, Denies dyspnea on exertion and Reports wheezing GI Denies abdominal pain Musc Reports as per HPI, Reports arthralgias and Reports limited range of motion Neuro Denies Neuro-related abnormal movements Psych Denies no additional complaints Endo Reports fatigue Mauricio/Lymph Denies easy bleeding and Denies lymphadenopathy Aller/Immun Denies lip swelling, Denies tongue swelling and Reports wheezing Physical Exam Vital Signs: Last Vital Signs Pulse 67 05/24/25 09:15 BP 110/52 L 05/24/25 09:15 Pulse Ox 97 05/24/25 09:15 Oxygen Delivery Method Room Air 05/24/25 09:15 Const General: alert Eyes Pupils: Equal, round and reactive pupils present Neck Neck: Yes normal visual inspection, Yes full ROM and Yes no lymphadenopathy Chest Chest palpation & inspection: normal inspection of the chest Resp Effort & Inspection: prolonged expiratory phase Auscultation: no crackles, no rales, no rhonchi, wheezes and diminished lung sounds Cardio Rate: regular rate Rhythm: regular rhythm Heart sounds: S1 normal heart sound present and S2 normal heart sound present GI Palpation (GI): Soft to palpation and nontender Auscultation: normal bowel sounds Skin General skin exam: no rashes or lesions noted Neuro Cranial nerves: Yes Equal, round and reactive pupils present Extrem General: Yes no clubbing, cyanosis or edema Assessment & Plan Assessment & Plan (1) Pulmonary nodules: Comment: multiple solid nodules, 1 4-5mm GG nodule in the right hemithorax, stable Code(s): R91.8 - Other nonspecific abnormal finding of lung field Category: Medical (2) KORI on CPAP: Code(s): G47.33 - Obstructive sleep apnea (adult) (pediatric); Z99.89 - Dependence on other enabling machines and devices Category: Medical (3) Asthma: Code(s): J45.909 - Unspecified asthma, uncomplicated Category: Medical Qualifiers: Asthma complication type: uncomplicated Asthma persistence: persistent Asthma severity: moderate Qualified Code(s): J45.40 - Moderate persistent asthma, uncomplicated (4) Chronic restrictive lung disease: Comment: resolved Code(s): J98.4 - Other disorders of lung Category: Medical (5) Bronchiectasis: Comment: boderline Code(s): J47.9 - Bronchiectasis, uncomplicated Category: Medical Qualifiers: Bronchiectasis type: uncomplicated Qualified Code(s): J47.9 - Bronchiectasis, uncomplicated (6) Cough: Code(s): R05.9 - Cough, unspecified Category: Medical Qualifiers: Cough type: acute Qualified Code(s): R05.1 - Acute cough Plan Continue CPAP therapy. Will trial N30i small, needs supplies. Needs to use chin strap Start Wixela, will use 1 inhalation in the morning and will rinse and gargle afterwards. Continue short-acting beta agonist as needed with spacer F/U in 4-6 months Medications: New fluticasone propion-salmeterol 250-50 mcg/dose (Wixela Inhub) 1 inh inhalation Q12H 60 ea 11RF 30 days Coding Level of Care Code Est Pt Level 4 (21976) Diagnoses Pulmonary nodules R91.8 KORI on CPAP G47.33; Z99.89 Moderate persistent asthma without complication J45.40 Asthma complication type: uncomplicated Asthma persistence: persistent Asthma severity: moderate Chronic restrictive lung disease J98.4 Bronchiectasis without complication J47.9 Bronchiectasis type: uncomplicated Acute cough R05.1 Cough type: acute Time Spent (min) 17
--- OUTSIDE RECORDS SUMMARY | 2025-05-24 10:30 | XMS_ITS | Patient Health Record ---
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 Name Role Phone Frances Zapata MD Primary Care Provider Unavail able Kaya Clifford Unavailable [phone] Allergies Allergen (clinical drug ingredient) Drug/Non Drug [...] of lesser toe, right (M19.071) Active confirmed Plan Of Treatment No Information Insurance Providers Payer Name Payer Address Payer Phone Subscriber Number Group Number Insured Name Patient Relationship to Insured Coverage Start Date Coverage End Date Medicare National [employer]t [employer] [address] [place] [address] [id number] Precious Ashby Self - patient is the insured [facility] [address] [place], [place] [address] [id number] Precious Ashby Self - patient is the insured Medical (General) History Medical History History ICD Code Arthritis asthma High blood pressure Measles Mumps Chicken pox Surgical History Surgery Date(Month/Year) hysterectomy bone removal left hand bowel resection appendectomy
--- OUTSIDE RECORDS SUMMARY | 2025-05-24 10:31 | XMS_ITS | Clinical Summary ---
Author Organization [facility] [address] [facility] Address [address] [place] [address] Phone Care Team Providers Care Field Ironworker Name Role Phone Leonardo Babcock MD Primary Care Provider [phone] Allergies Active Allergy Reactions Criticality Noted Date [...] tablet Take 25 mg by mouth daily. 1 Active cholecalciferol (VITAMIN D-3) 25 mcg (1,000 unit) capsule Vitamin D, Cholecalciferol , 25 MCG (1000 UT) Tab Take by mouth Active acetaminophen (TYLENOL) 325 mg tablet Take 2 tablets (650 mg total) by mouth every 6 (six) hours if needed. 4 Active CYANOCOBALAMIN, VITAMIN B-12, INJ Inject 500 mcg under the skin. 5 Active fluticasone propionate (FLONASE) 50 mcg/actuation nasal spray Administer 1 spray into each nostril 1 (one) time each day. 2 Active triamcinolone (KENALOG) 0.025 % ointment Apply topically 2 (two) times a day. 4 Active famotidine (PEPCID) 20 mg tablet Take 1 tablet (20 mg total) by mouth at bedtime. 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 Primary osteoarthritis of both knees 04/06/2025 Sinusitis 04/06/2025 Restless leg syndrome 04/06/2025 Spondylosis of cervical spine 04/06/2025 Overview (04/06/2025): 2010 MRI at [facility] Tendonitis of left hip 04/06/2025 Vitamin B 12 deficiency 04/06/2025 Irritable bowel syndrome with constipation 04/06 Gastrointestinal tract imaging abnormality 04/06 Gastroesophageal reflux disease without esophagi tis 04/06/2025 History of total left hip replacement 07/09/2024 Recurrent incisional hernia 06/28/2024 Osteoarthritis of left hip 03/17/2024 Balance problem 02/19/2023 Numbness 02/19/2023 Osteoarthritis 02/19/2023 Abnormal ECG 07/17/2021 Chronic obstructive pulmonary disease (COPD) Essential hypertension 09/02/2017 Hyperlipidemia 09/02/2017 KORI (obstructive sleep apnea) 09/02/2017 Periodic limb movement disorder (PLMD) 8 Encounters Date Type Department Care Team Description 05/23/2025 Telephone [facility] - [address] [place] [address] Devin Sexton MD 04/06/2025 1:20 PM EDT Office Visit Gastroenterology - [address] [phone] Vance Irvin MD Irritable bowel syndrome with constipation (Primary Dx); Gastrointestinal tract imaging abnormality; Pancreas cyst; Gastroesophageal reflux disease without esophagitis 04/04/2025 Telephone Gastroenterology - [address] [phone] Vance Irvin MD from Last 3 Months Surgical History Surgery Date Site/Laterality Comments APPENDECTOMY PROCEDURE: [place] APPENDECTOMY HERNIA REPAIR 12/2017 PROCEDURE: HISTORICAL HERNIA REPAIR/MIA BOWEL RESECTION PROCEDURE: HISTORICAL BOWEL RESECTION COLONOSCOPY PROCEDURE: HISTORICAL COLONOSCOPY CARPAL TUNNEL RELEASE Medical History Medical History Date Comments Chronic obstructive pulmonar y disease (COPD) ([facility]/HCC V24, CMS/HCC V28) 09/02/2017 DX:Chronic obstructi ve pulmonary disease (COPD) ([facility]) Hypertension 09/02/2017 DX:Hypertension Hyperlipidemia 09/02/2017 DX:Hyperlipidemi a [...] EDT Inhaled Oxygen Concentration - - Weight 70.3 kg (155 lb) 04/06/2025 1:19 PM EDT Height 157.5 cm (5' 2 ) 04/06/2025 1:19 PM EDT Body Mass Index 28.35 04/06/2025 1:19 PM EDT Plan of Treatment Upcoming Encounters Date Type Department Care Team (Late st Contact Info) Description 06/16/2025 8:15 AM EST Appointment [facility] Endoscopy [address] [place] [address] Vance Irvin MD 299 [facility] [address] [place] [address] Health Maintenance Due Date Last Done Comments Cholesterol Screening (Lipid Panel) 05/07/2022 Falls Risk Assessment 05/07/2022 Social Influencers of Health Screening 05/07/2022 Hypertension/CHF/CAD Annual BMP Blood Test 05/19/2022 Medicare Annual Wellness Visit 01/28/2024 01/27/2023 Depression Screening 06/09/2024 COVID-19 Vaccine ( season) 2025 03/10/2024, 03/26/2023, 02/27/2022, Additional history exists DTaP,Tdap,and Td Vaccines (3 - Td or Tdap) 11/03/2031 11/02/2021, 09/08/2011 Osteoporosis Screening (Bone Density Screening) 02/07/2033 02/07/2023, 10/03/2020 Pneumococcal Vaccine: 50+ Years Completed 03/26/2017, 01/03/2015 Zoster Vaccines Completed 10/08/2020, 04/03/2020 RSV Immunization Adult Patients Completed 05/09/2023 Influenza Vaccine Completed 03/18/2025, , 04/30/2023, Additional history exists HIB Vaccines Aged Out [...] on patient's age to complete this topic Goals Goal Patient Goal Type Associated Problems Recent Progress Patient-Stated? Author Autogenera bhavik Goal Care Plan Autogenerated Problem No Maryjo Ernst Procedures Procedure Name Priority Date/Time Associated Diagnosis Comments [facility] Routine 02/07/2023 10:25 AM EDT Encounter for screening for osteoporosis from Last 3 Months or Most Recently Relevant to Health Maintenance Results * [facility] (02/07/2023 10:25 AM EDT) Anatomical Region Laterality Modality Mammography 02/07/2023 9:52 AM EDT Narrative 02/07/2023 10:25 AM EDT [facility] Diagnostic Imaging Department [address] [place] [id number] Patient: LISANDRO CHINONITHIN AguilarB./Age/Sex: 1940 - 83 - F Unit#: [id number] [facility] Mnemonic/Ordering Site: MAMDEXAAX/SPMAM Ordering Physician: FRANCES ZAPATA MD Eddie Dexa [...] probability of hip fracture of 8.8%. Code 45265 Dictating Physician: GORDY RODAS MD Electronically Signed by: GORDY RODAS MD Dic Date/Time: 02/07/23 1024 Sign date/Time: 02/07/23 1025 Procedure Note Goryd Rodas MD - 07/15/2023 [facility] Diagnostic Imaging Department [address] [place] [id number] Patient: PRECIOUS CHINO /Age/Sex: 1940 - 83 - F Unit#: [id number] Location/Status: SPDIMAM/REG CLI Mnemonic/Ordering Site: MAMDEXAAX/SPMAM Ordering Physician: FRANCES ZAPATA MD Eddie Dexa [...] density of the femurs bilaterally is 0.771 gm/el1jilgr is 76% of that of young normals [...] probability of hip fracture of 8.8%. Code 78746 Dictating Physician: GORDY ORDAS MD Electronically Signed by: GORDY RODAS MD Dic Date/Time: 02/07/23 1024 Sign date/Time: 02/07/23 1025 Frances Zapata MD IMG BI PROCEDURES Final Result from Last 3 Months or Most Recently Relevant to Health Maintenance Additional Health Concerns Active Problems Noted Date Diagnosed Date Autogenerated Problem 04/22/2025 Insurance MEDICARE [facility] MEDICARE [employer] Care Teams Field Ironworker Relationship Specialty Start Date End Date Leonardo Babcock MD [address] [place] [id number] PCP - General Internal Medicine 04/04/25
--- OUTSIDE RECORDS SUMMARY | 2025-05-24 10:31 | XMS_ITS | Clinical Summary ---
Author Organization [facility] Address [address] [place] [address] Care Team Providers Care Director Of Restaurant Name Role Phone Pcp, No MD Primary [...] mL, 5 Refills, Maintenance, 06/14/21 13:01:00 EST, [facility]/pharmacy #[id number], 30, SPRAY 1 SPRAY INTO EACH NOSTRIL TWICE A DAY NEEDED FOR NASAL CONGESTION, 1... 06/14/2021 Active calcium carbonate (CALCIUM 500 ORAL) Take by mouth. Active oxdoyqg-heac-hf dmy-znqr-vatpfz 100 mg-150 mg- 50 mg-150 mg capsule [...] topic [facility] Care Teams Director Of Restaurant Relationship Specialty Start Date End Date PcpEthel MD [address] [place] [address] PCP - General Internal Medicine 01/29/23
--- OUTSIDE RECORDS SUMMARY | 2025-05-24 10:31 | XMS_ITS | Encounter Summary ---
Author Organization [facility] Address [address] [place] [address] Care Team Providers Care Mold Engraver Name Role Phone Leonardo Babcock MD Primary Care Provider [phone] Reason for Visit * Reason Onset Date Comments library monitor 05/23/2025 Loop - 39246 (ok to book) 05/23/2025 Encounter Details Date Type Department Care Team (Late st Contact Info) Description 05/23/2025 Telephone [facility] - [address] [place] [phone] Devin Sexton MD [address] [place] [address] [address] [place] [phone] Social History Tobacco Use Types Packs/Day Years Used Date Smoking Tobacco: Former Cigarettes Smokeless Tobacco: Never Alcohol Use Standard Drinks/Week Comments Never 0 (1 standard drink = 0.6 oz pur e alcohol) Comments Unknown Sex and Gender Information Value Date Recorded Sex Assigned at Not on file Legal Sex Female 12:43 PM EST Gender Identity Not on file Sexual Orientation Not on file documented as of this encounter Progress Notes * Violet Olguin [place] - 05/24/2025 9:19 AM EST Tentative date: Patient will be enrolled for 14 day Looping Monitor with [employer] for home delivery per Leonardo Babcock MD/Dr. Sexton to read Dx: Fluttering Heart. * Nell Frankel - 05/24/2025 8:48 AM EST Prior Auth Status: NO Auth Req per Medicare Insurance Referral: N/A CPT: 85256 - Loop DX: I49.8 Duration: 14 Days [place]: Darshan ROMAN to BOOK * Kari Abraham - 05/23/2025 2:39 PM EST A 14 Day Monitor has been ordered for this patient. Please review eligibility and prior auth requirements. Thank you, [facility] Scheduling documented in this encounter Plan of Treatment Upcoming Encounters Date Type Department Care Team (Late st Contact Info) Description 06/16/2025 8:15 AM EST Appointment [facility] Endoscopy [address] [place] [phone] Vance Irvin MD [address] [facility] [address] [place] [address] documented as of this encounter Goals Goal Patient Goal Type Associated Problems Recent Progress Patient-Stated? Author Autogenera bhavik Goal Care Plan Autogenerated Problem No Maryjo Ernst documented as of this encounter Visit Diagnoses Not on filedocumented in this encounter Additional Health Concerns Active Problems Noted Date Diagnosed Date Autogenerated Problem 04/22/2025 documented as of this encounter Care Teams Mold Engraver Relationship Specialty Start Date End Date Leonardo Babcock MD [address] [place] [address] [address] [place] [address] PCP - General Internal Medicine 04/04/25 documented as of this encounter
== END 2025-05-24 09:43 | disposition home or self-care (01) ==
PROVIDERS: PCP Internal Medicine; Visit Provider Hospitalist
DX: R91.8 Other nonspecific abnormal finding of lung field (principal); G47.33 Obstructive sleep apnea (adult) (pediatric); Z99.89 Dependence on other enabling machines and devices; J45.40 Moderate persistent asthma, uncomplicated; J98.4 Other disorders of lung; J47.9 Bronchiectasis, uncomplicated; R05.1 Acute cough
CPT/HCPCS: 99214

== ENCOUNTER → 2025-05-24 09:10 | Outpatient (BNVA) | payer MEDICARE, OTHER, SELFPAY | PROVIDERS: PCP Internal Medicine; Visit Provider Hospitalist | DX: J45.40 Moderate persistent asthma, uncomplicated (principal); G47.33 Obstructive sleep apnea (adult) (pediatric); J98.4 Other disorders of lung; J47.9 Bronchiectasis, uncomplicated; R05.1 Acute cough; Z99.89 Dependence on other enabling machines and devices | CPT/HCPCS: 99212 ==